=== PATIENT | female | born 1970 | race Caucasian/White ===

== ENCOUNTER → 2016-03-08 | Outpatient (CLI) | payer BC ==
--- NOTE | 2016-03-08 15:24 | US ---
EXAMINATION TYPE: US thyroid st tissue head/neck DATE OF EXAM: 03/08/2016 2:39 PM COMPARISON: NONE CLINICAL HISTORY: E04.9 Nontoxic goiter, unspecified. GLAND SIZE: Right Lobe: 4.6 x 1.5 x 1.6 cm Left Lobe: 4.1 x 1.2 x 1.5 cm Isthmus Thickness: 0.2 cm There is homogeneous glandular parenchyma without discrete nodule. IMPRESSION: Thyroid gland measurements as above. No discrete nodule.
== END | disposition home or self-care (01) ==
LOC: RADUSWWP 14:19
PROVIDERS: ATTEND Family Medicine
DX: E01.0 Iodine-deficiency related diffuse (endemic) goiter (principal); Z85.3 Personal history of malignant neoplasm of breast
CPT/HCPCS: 76536

== ENCOUNTER → 2017-11-04 | Outpatient (CLI) | payer BC ==
[~2017-11-04] MED LIST: LEUPROLIDE ACET 11.25MG SYRGKIT IM NR
[2017-11-04 08:51] VITALS: BP 154/101; PULSE 84; RESP 16; TEMP 97.9
== END ==
LOC: PROCWHC3 08:29
PROVIDERS: ATTEND Internal Medicine Hematology & Oncology
DX: C50.412 Malignant neoplasm of upper-outer quadrant of left female breast (principal)
CPT/HCPCS: 96372; J1950

== ENCOUNTER → 2017-12-22 | Outpatient (CLI) | payer BC ==
--- NOTE | 2017-12-22 14:41 | MM ---
Reason for exam: additional evaluation requested from prior study. Last mammogram was performed 1 year ago. History: Patient has history of breast cancer at age 41. Family history of breast cancer in maternal aunt. Benign US biopsy breast VAD RT of the right breast, January 07, 2014. Mastectomy of the left breast, July 16, 2011. Malignant left mammotome panel of the left breast, June 19, 2011. Implant in the left breast, 2011. Breast lift of the right breast, 2011. Reconstruction of the left breast, 2011. Taking tamoxifen for 1 year beginning at age 41. Physical Findings: Nurse did not find any significant physical abnormalities on exam. MG 3D Diag Mammo W/Cad RT CC and MLO view(s) were taken of the right breast. Prior study comparison: December 16, 2016, right breast MG 3d diag mammo w/cad RT. December 13, 2015, right breast MG diagnostic mammo RT w CAD. There are scattered fibroglandular densities. No significant new findings when compared with previous films. These results were verbally communicated with the patient and result sheet given to the patient on 12/22/17. ASSESSMENT: Benign, BI-RAD 2 RECOMMENDATION: Follow-up diagnostic mammogram of the right breast in 1 year.
== END | disposition home or self-care (01) ==
LOC: RADMAMWWP 06:53
PROVIDERS: ATTEND Internal Medicine Hematology & Oncology
DX: Z08 Encounter for follow-up examination after completed treatment for malignant neoplasm (principal); Z85.3 Personal history of malignant neoplasm of breast
CPT/HCPCS: 77061; 77065

== ENCOUNTER → 2018-02-05 | Outpatient (CLI) | payer BC ==
[~2018-02-05] MED LIST changes: -LEUPROLIDE ACET 11.25MG SYRGKIT IM NR; +LEUPROLIDE ACET 11.25MG SYRGKIT IM ONE
[2018-02-05 10:21] VITALS: BP 132/89; PULSE 86; RESP 16; TEMP 97.7
== END ==
LOC: PROCWHC3 09:49
PROVIDERS: ATTEND Internal Medicine Hematology & Oncology
DX: Z51.11 Encounter for antineoplastic chemotherapy (principal); C50.412 Malignant neoplasm of upper-outer quadrant of left female breast
CPT/HCPCS: 96402; J1950

== ENCOUNTER → 2018-05-18 | Outpatient (CLI) | payer BC ==
--- NOTE | 2018-05-18 09:56 | BD ---
EXAMINATION TYPE: Axial Bone Density DATE OF EXAM: 05/18/2018 COMPARISON: NONE CLINICAL HISTORY: C 50.412 Height: 5'6 Weight: 197 FRAX RISK QUESTIONS: Secondary Osteoporosis: 3. Menopause before 45: n RISK FACTORS HISTORY OF: Family History of Osteoporosis: y Post menopausal: Y MEDICATIONS: Additional Medications: breast cancer not tamoxifen Additional History: breast cancer 6 years ago, EXAM MEASUREMENTS: Bone mineral densitometry was performed using the [employer] System. Bone mineral density as measured about the Lumbar spine is: ----- L1-L4(G/cm2): 1.001 T Score Values are as follows: ----- L2: -1.4 ----- L3: -1.5 ----- L4:-2.4 ----- L1-L4: -1.5 Bone mineral density about the R hip (g/cm2): 1.139 Bone mineral density about the L hip (g/cm2): 1.055 T Score values are as follows: -----R Neck: 0.7 -----L Neck: 0.1 -----R Total: 0.8 -----L Total: 0.6 IMPRESSION: Osteopenia (T Score between -2.5 and -1). There is slightly increased risk of fracture and the patient may be considered for treatment. Re-Screen 2-5 years. NOTE: T-SCORE=SD OF THE YOUNG ADULT MEAN.
== END | disposition home or self-care (01) ==
LOC: RADBDWWP 07:19
PROVIDERS: ATTEND Internal Medicine Hematology & Oncology
DX: C50.412 Malignant neoplasm of upper-outer quadrant of left female breast (principal); M85.88 Other specified disorders of bone density and structure, other site; Z79.890 Hormone replacement therapy
CPT/HCPCS: 77080

== ENCOUNTER 2018-07-26 09:54 | Emergency (ER) | payer BC ==
[2018-07-26 10:11] VITALS: BP 134/91; PULSE 90; RESP 20; TEMP 98.1
[2018-07-26] MEDS ORDERED: SODIUM CHLORIDE 0.9% 1,000 ML IV ONE (10:24)
[2018-07-26] MEDS ORDERED: KETOROLAC 30 MG/ML 1 ML VIAL IVP STA (10:24)
--- NOTE | 2018-07-26 10:46 | ED ---
Female Urogenital HPI - General Chief complaint: Urogenital Stated complaint: FEMALE , BLEEDING Time Seen by Provider: 07/26/18 10:16 Source: patient, RN notes reviewed, old records reviewed Mode of arrival: ambulatory Limitations: no limitations - History of Present Illness Initial comments: Patient is a 48-year-old female, with history of breast cancer, currently on letrozole. She presents emergency today with concerns for vaginal bleeding. She reports that she started have some lower abdominal cramping and noticed severe heavy vaginal bleeding this morning around 4 AM. Patient states the bleeding has alee since that time. She states that she's not had a menstrual period in over a year. Patient states that her oncologist is Dr. Diamond. She does see Dr. álvarez. She reports that she's had no dysuria, or changes in stools. - Related Data Home Medications Medication Instructions Recorded Confirmed Multivitamins, Thera [Multivitamin 1 tab PO DAILY 01/24/17 02/05/18 (formulary)] Allergies Allergy/AdvReac Type Severity Reaction Status Date / Time No Known Allergies Allergy Verified 07/26/18 10:11 Review of Systems ROS Statement: Those systems with pertinent positive or pertinent negative responses have been documented in the HPI. ROS Other: All systems not noted in ROS Statement are negative. Past Medical History Past Medical History: Cancer Additional Past Medical History / Comment(s): BREAST History of Any Multi-Drug Resistant Organisms: None Reported Past Surgical History: Breast Surgery, Section, Tubal Ligation Additional Past Surgical History / Comment(s): LEFT MASTECTOMY Past Anesthesia/Blood Transfusion Reactions: No Reported Reaction Past Psychological History: No Psychological Hx Reported Smoking Status: Current every day smoker Past Alcohol Use History: None Reported Past Drug Use History: None Reported General Exam - General Exam Comments Initial Comments: 48-year-old female. Alert and oriented. No distress. Limitations: no limitations General appearance: alert, in no apparent distress Head exam: Present: atraumatic, normocephalic, normal inspection Eye exam: Present: normal appearance, PERRL, EOMI. Absent: scleral icterus, conjunctival injection, periorbital swelling ENT exam: Present: normal exam, mucous membranes moist Neck exam: Present: normal inspection Respiratory exam: Present: normal lung sounds bilaterally. Absent: respiratory distress, wheezes, rales, rhonchi, stridor Cardiovascular Exam: Present: regular rate, normal rhythm, normal heart sounds. Absent: systolic murmur, diastolic murmur, rubs, gallop, clicks GI/Abdominal exam: Present: soft External exam: Present: normal external exam Speculum exam: Present: vaginal bleeding. Absent: normal speculum exam By manual exam: Present: normal by manual exam. Absent: cervical motion tenderness, adnexal tenderness, adnexal mass Extremities exam: Present: normal inspection, full ROM, normal capillary refill. Absent: tenderness, pedal edema, joint swelling, calf tenderness Back exam: Present: normal inspection Neurological exam: Present: alert, oriented X3, CN II-XII intact Psychiatric exam: Present: normal affect, normal mood Skin exam: Present: warm Course Vital Signs 07/26/18 10:08 Temperature 98.1 F Pulse Rate 90 Respiratory 20 Rate Blood Pressure 134/91 O2 Sat by Pulse 96 Oximetry Medical Decision Making - Medical Decision Making This is a 48-year-old female presents emergency room today for 1 day of vaginal bleeding. Has a history of breast cancers, currently have much resolved for breast cancer treatment and hormonal induced menopause. Patient reports that she started to have the bleeding heavily this morning. No prior bleeding she's also on Depo-Provera. Patient reports she follows with Dr. Diamond and Dr. Nolen. This time patient's blood work was reviewed and unremarkable. Stable hemoglobin. Ultrasound shows evidence of a thickened endometrium likely related to hormone use cannot rule out endometrial cancer without biopsy. I discussed the findings with the Patient and advised that she follow-up with Dr. Nolen for a biopsy and further treatment. Patient states that his feel better after Toradol. She still complained of some cramping consistent with heavy menstrual cycle. We'll discharge the Patient does have a started pack for Ultram for cramping as well as Motrin and Tylenol and ice for pain. - Lab Data Result diagrams: 07/26/18 11:00 07/26/18 11:00 Lab Results 07/26/18 07/26/18 07/26/18 Range/Units 11:00 11:00 11:00 WBC 9.3 (3.8-10.6) k/uL RBC 4.82 (3.80-5.40) m/uL Hgb 13.7 (11.4-16.0) gm/dL Hct 43.4 (34.0-46.0) % MCV 90.1 (80.0-100.0) fL MCH 28.4 (25.0-35.0) pg MCHC 31.5 (31.0-37.0) g/dL RDW 13.1 (11.5-15.5) % Plt Count 367 (150-450) k/uL Neutrophils % 52 % Lymphocytes % 36 % Monocytes % 7 % Eosinophils % 2 % Basophils % 0 % Neutrophils # 4.9 (1.3-7.7) k/uL Lymphocytes # 3.3 (1.0-4.8) k/uL Monocytes # 0.6 (0-1.0) k/uL Eosinophils # 0.2 (0-0.7) k/uL Basophils # 0.0 (0-0.2) k/uL PT 9.9 (9.0-12.0) sec INR 0.9 (<1.2) APTT 24.8 (22.0-30.0) sec Sodium 139 (137-145) mmol/L Potassium 4.3 (3.5-5.1) mmol/L Chloride 108 H (98-107) mmol/L Carbon Dioxide 26 (22-30) mmol/L Anion Gap 5 mmol/L BUN 20 H (7-17) mg/dL Creatinine 0.69 (0.52-1.04) mg/dL Est GFR (CKD-EPI)AfAm >90 (>60 ml/min/1.73 sqM) Est GFR (CKD-EPI)NonAf >90 (>60 ml/min/1.73 sqM) Glucose 105 H (74-99) mg/dL Calcium 9.1 (8.4-10.2) mg/dL Total Bilirubin 0.6 (0.2-1.3) mg/dL AST 22 (14-36) U/L ALT 25 (9-52) U/L Alkaline Phosphatase 84 (38-126) U/L Total Protein 6.9 (6.3-8.2) g/dL Albumin 4.0 (3.5-5.0) g/dL Urine HCG, Qual (Not Detectd) 07/26/18 Range/Units 11:00 WBC (3.8-10.6) k/uL RBC (3.80-5.40) m/uL Hgb (11.4-16.0) gm/dL Hct (34.0-46.0) % MCV (80.0-100.0) fL MCH (25.0-35.0) pg MCHC (31.0-37.0) g/dL RDW (11.5-15.5) % Plt Count (150-450) k/uL Neutrophils % % Lymphocytes % % Monocytes % % Eosinophils % % Basophils % % Neutrophils # (1.3-7.7) k/uL Lymphocytes # (1.0-4.8) k/uL Monocytes # (0-1.0) k/uL Eosinophils # (0-0.7) k/uL Basophils # (0-0.2) k/uL PT (9.0-12.0) sec INR (<1.2) APTT (22.0-30.0) sec Sodium (137-145) mmol/L Potassium (3.5-5.1) mmol/L Chloride (98-107) mmol/L Carbon Dioxide (22-30) mmol/L Anion Gap mmol/L BUN (7-17) mg/dL Creatinine (0.52-1.04) mg/dL Est GFR (CKD-EPI)AfAm (>60 ml/min/1.73 sqM) Est GFR (CKD-EPI)NonAf (>60 ml/min/1.73 sqM) Glucose (74-99) mg/dL Calcium (8.4-10.2) mg/dL Total Bilirubin (0.2-1.3) mg/dL AST (14-36) U/L ALT (9-52) U/L Alkaline Phosphatase (38-126) U/L Total Protein (6.3-8.2) g/dL Albumin (3.5-5.0) g/dL Urine HCG, Qual Not Detected (Not Detectd) Disposition Clinical Impression: Abnormal uterine bleeding, Pelvic cramping Disposition: HOME SELF-CARE Condition: Good Instructions (If sedation given, give patient instructions): Dysfunctional Uterine Bleeding (ED) Additional Instructions: Patient has an close follow-up with your oncologist as well as SERVICE AND REPAIR SUPERVISOR. Return to emergency department if any alarming signs or symptoms occur. Is patient prescribed a controlled substance at d/c from ED?: No Referrals: Sharmila Sylvester MD [Primary Care Provider] - 1-2 days Marybel Nolen MD [STAFF PHYSICIAN] - 1-2 days Anushka Diamond MD [STAFF PHYSICIAN] - 1-2 days Time of Disposition: 13:13
[2018-07-26 11:20] LABS: Basophils % (A) 0 %; Eosinophils # (A) 0.2 k/uL (0-0.7); Eosinophils % (A) 2 %; HCT 43.4 % (34.0-46.0); HGB 13.7 gm/dL (11.4-16.0); Lymphocytes # (A) 3.3 k/uL (1.0-4.8); Lymphocytes % (A) 36 %; MCH 28.4 pg (25.0-35.0); MCHC 31.5 g/dL (31.0-37.0); MCV 90.1 fL (80.0-100.0); Mean Platelet Volume 6.8; Monocytes # (A) 0.6 k/uL (0-1.0); Monocytes % (A) 7 %; Neutrophils # (A) 4.9 k/uL (1.3-7.7); Neutrophils % (A) 52 %; Platelet Count 367 k/uL (150-450); RBC 4.82 m/uL (3.80-5.40); RDW 13.1 % (11.5-15.5); WBC 9.3 k/uL (3.8-10.6)
[2018-07-26 11:29] LABS: ALT 25 U/L (9-52); AST 22 U/L (14-36); African American GFR (CKD) >90 (>60 ml/min/1.73 sqM); Alkaline Phosphatase 84 U/L (38-126); Anion Gap 5 mmol/L; Blood Urea Nitrogen 20 mg/dL (7-17); Calcium 9.1 mg/dL (8.4-10.2); Carbon Dioxide 26 mmol/L (22-30); Chloride 108 mmol/L (98-107); Glucose 105 mg/dL (74-99); Potassium 4.3 mmol/L (3.5-5.1); Sodium 139 mmol/L (137-145); Total Bilirubin 0.6 mg/dL (0.2-1.3); Total Protein 6.9 g/dL (6.3-8.2)
[2018-07-26 11:47] LABS: Appearance,Urine Cloudy (Clear); Bacteria,Urine Few /hpf; Bilirubin,Urine Negative (Negative); Blood,Urine Moderate (Negative); Color,Urine Yellow; Glucose,Urine (UA) Negative (Negative); Ketones,Urine Negative (Negative); Leukocyte Esterase,Urine Negative (Negative); Mucus,Urine Rare /hpf; Nitrite,Urine Negative (Negative); Protein,Urine Trace (Negative); RBC,Urine 8 /hpf (0-5); Specific Gravity,Urine 1.016 (1.001-1.035); Squamous Epithelial Cell,Urine 2 /hpf (0-4); Urobilinogen,Urine <2.0 mg/dL (<2.0); WBC,Urine 6 /hpf (0-5)
[2018-07-26 11:48] LABS: INR 0.9 (<1.2); Partial Thromboplastin Time 24.8 sec (22.0-30.0); Prothrombin Time 9.9 sec (9.0-12.0)
--- NOTE | 2018-07-26 12:53 | US ---
EXAMINATION TYPE: US transvaginal DATE OF EXAM: 07/26/2018 COMPARISON: Previous study dated 01/24/2017. CLINICAL HISTORY: Pain. Patient in forced menopause on left hand. Patient has breast ca and is currently taking medication for that as well. TECHNIQUE: Transvaginal (TV). Date of LMP: 1 1/2 years prior. EXAM MEASUREMENTS: Uterus: 8.7 x 4.1 x 4.7 cm Endometrial Stripe: 1.6 cm Right Ovary: 1.9 x 1.3 x 1.4 cm Left Ovary: not visualized 1. Uterus: Anteverted wnl 2. Endometrium: thickened 3. Right Ovary: wnl 4. Left Ovary: Obscured by overlying bowel gas . Bilateral Adnexa: wnl 6. Posterior cul-de-sac: mild amount of ff IMPRESSION: 1. THICKENED ENDOMETRIUM. THIS MAY BE DUE TO HORMONAL THERAPY. ENDOMETRIAL CANCER WITH NEED TO BE RUL ED OUT. 2. SMALL AMOUNT OF FREE FLUID.
[2018-07-26] MEDS ORDERED: traMADol 50 MG STARTER PACK 3 TAB BTL PO STA (13:14)
== END 2018-07-26 13:29 | disposition home or self-care (01) ==
LOC: EC 09:54
DX: N93.9 Abnormal uterine and vaginal bleeding, unspecified (principal); R10.2 Pelvic and perineal pain; R93.89 Abnormal findings on diagnostic imaging of other specified body structures; F17.200 Nicotine dependence, unspecified, uncomplicated; Z85.3 Personal history of malignant neoplasm of breast; Z90.12 Acquired absence of left breast and nipple
CPT/HCPCS: 36415; 80053; 85025; 85610; 85730; 81001; 81025; 76830; 99284; 96374; 96361 ×2; J1885

== ENCOUNTER → 2018-07-28 | Outpatient (CLI) | payer BC ==
[2018-07-28 15:02] LABS: Basophils # (A) 0.1 k/uL (0-0.2); Basophils % (A) 0 %; Eosinophils # (A) 0.4 k/uL (0-0.7); Eosinophils % (A) 3 %; HCT 44.7 % (34.0-46.0); HGB 13.9 gm/dL (11.4-16.0); Lymphocytes # (A) 3.9 k/uL (1.0-4.8); Lymphocytes % (A) 35 %; MCHC 31.2 g/dL (31.0-37.0); MCV 92.9 fL (80.0-100.0); Mean Platelet Volume 6.7; Monocytes # (A) 0.8 k/uL (0-1.0); Monocytes % (A) 7 %; Neutrophils # (A) 5.8 k/uL (1.3-7.7); Neutrophils % (A) 52 %; Platelet Count 404 k/uL (150-450); RBC 4.81 m/uL (3.80-5.40); RDW 13.8 % (11.5-15.5); WBC 11.2 k/uL (3.8-10.6)
== END | disposition home or self-care (01) ==
LOC: LABPAT 14:12
PROVIDERS: ATTEND Obstetrics & Gynecology
DX: Z01.812 Encounter for preprocedural laboratory examination (principal); N93.9 Abnormal uterine and vaginal bleeding, unspecified
CPT/HCPCS: 36415; 85025

== ENCOUNTER → 2018-08-10 | Day surgery (SDC) | payer BC ==
[2018-08-05 13:17] VITALS: BMI 28.1
[~2018-08-10] MED LIST changes: +DEXAMETHASONE SOD PHOSPHATE 10 MG/ML 1 ML VIAL IV ONE; +HYDROmorphone 1 MG/ML 1 ML SYRINGE IVP ONE; +KETOROLAC 30 MG/ML 1 ML VIAL ONE; +LACTATED RINGERS 1,000 ML IV ONE; +LACTATED RINGERS 1,000 ML IV SCH; -LEUPROLIDE ACET 11.25MG SYRGKIT IM ONE; +LIDOCAINE 1% 20 ML VIAL (10MG/ML) FOR IV START INTRADERMA PRN; +LIDOCAINE 1% INJ 10MG/ML (20 ML MDV) ONE; +MIDAZOLAM 2 MG/2 ML VIAL IV PRN; +MIDAZOLAM 2 MG/2 ML VIAL ONE; +ONDANSETRON 4 MG/2 ML VIAL IVP ONE; +PROPOFOL 10 MG/ML 20 ML VIAL IV ONE; +Pre Op ABX Message 1 EACH MISC MISCELLANE ONE; +SILVER NITRATE APPLICATOR 1 EACH STICK..EA. TOPICAL ONE; +fentaNYL (PF) 50 MCG/ML 2 ML AMP IV PRN; +fentaNYL (PF) 50 MCG/ML 2 ML AMP ONE
[2018-08-10 08:09] VITALS: TEMP 97
--- NOTE | 2018-08-10 08:10 | P.OP ---
Date of Procedure: 08/10/18 Preoperative Diagnosis: Irregular uterine bleeding Postoperative Diagnosis: Endometrial polyp, grade 2 rectocele, grade 2 cystocele Procedure(s) Performed: Hysteroscopy, dilatation and curettage of the uterine cavity, polypectomy Anesthesia: JE Surgeon: Marybel Nolen Estimated Blood Loss (ml): 10 IV fluids (ml): 600 Urine output (ml): 20 Pathology: other (Endometrial curettings and polyp) Condition: stable Disposition: PACU Operative Findings: Grade 2 rectocele, grade 2 cystocele, 1 dominant endometrial polyp Description of Procedure: Patient is brought to the operating suite where general anesthetic is administered without difficulty. She's placed in the dorsal lithotomy position. The appropriate timeout was performed to assure proper patient and procedural identification. Urine hCG is negative. The cervix, vagina, perineal bodies are all prepped and draped in the usual sterile fashion. The bladder is drained for approximately 20 cc of clear yellow urine. The weighted speculum was placed into the vagina. The anterior lip of the cervix is grasped with a double-tooth tenaculum. Uterus sounds to a depth of 7 cm in the anteverted position. The cervix was gently and carefully dilated using Hanks dilators. The hysteroscope was placed and fluid is infused. The cavity is well distended and inspected. There is a smooth walled, rounded polyp noted in the lower uterine segment at approximately 3:00. The remaining view of the cavity is negative. The hysteroscope was removed. A small sharp curette is used and the cavity is gently and systematically curetted. The endometrial polyp is removed. This is sent to pathology for evaluation. The hysteroscope was then reintroduced, and the cavity is noted to be clear with no additional polyps, septa, fibroids or defects. The double-tooth tenaculum is also removed. A small esvyfj-fk-fhuze suture of 3-0 Vicryl is used on the perforation site for a small amount of bleeding with excellent results. All sponge needle and enhancement counts are correct. Patient is brought back to the recovery room in excellent condition with stable vital signs including a blood pressure of 115/72, pulse 73, 97% O2 saturation. She is given Toradol prior to leaving the operative suite. She will follow-up with me in the office in 2 weeks.
[2018-08-10 09:07] VITALS: RESP 18
[2018-08-10 09:55] VITALS: BP 113/72; PULSE 64
== END ==
LOC: OR 06:30
PROVIDERS: ATTEND Obstetrics & Gynecology
DX: N84.0 Polyp of corpus uteri (principal); N81.10 Cystocele, unspecified; N81.6 Rectocele; N92.6 Irregular menstruation, unspecified; Z85.3 Personal history of malignant neoplasm of breast; Z90.12 Acquired absence of left breast and nipple; Z98.51 Tubal ligation status; Z79.890 Hormone replacement therapy; Z83.3 Family history of diabetes mellitus; Z80.49 Family history of malignant neoplasm of other genital organs; Z87.891 Personal history of nicotine dependence; N93.9 Abnormal uterine and vaginal bleeding, unspecified
CPT/HCPCS: 81025; 88305; 58558; J2250; J1100; J2405; J2001; J3010; J1885; J1170; J2704

== ENCOUNTER 2018-12-08 14:23 | Emergency (ER) | payer OTHER ==
[2018-12-08 14:33] VITALS: RESP 18
[2018-12-08] MEDS ORDERED: KETOROLAC 30 MG/ML 1 ML VIAL IM STA (14:58)
--- NOTE | 2018-12-08 15:12 | ED ---
General Adult HPI - General Chief complaint: Extremity Injury, Upper Stated complaint: [facility]-Hand Injury Time Seen by Provider: 12/08/18 14:35 Source: patient Mode of arrival: ambulatory Limitations: no limitations - History of Present Illness Initial comments: Patient is a 48-year-old female presenting to the emergency department with chief complaint of right arm pain. Patient reports yesterday she was at work when she tripped and fell on the right side causing her right arm to be pinned between the ground and her body. Patient reports the pain is originating at the right breast and he is radiating distally and proximally along the arm. Patient reports limited range of motion in the right wrist with the inability to flex or extend it. Patient reports the pain is a 9 and throbbing. Patient denies any numbness or tingling. Patient went to [facility] who ordered x-rays. She had x-rays obtained today who were indicated of no fractures however the radiologist suggested a CT to perform which is why she was sent to the ED. Patient reports she still continues to have a lot of pain and no improvement in her symptoms. She really has an appointment scheduled tomorrow with network support specialist. - Related Data Home Medications Medication Instructions Recorded Confirmed Multivitamins, Thera [Multivitamin 1 tab PO DAILY 01/24/17 08/10/18 (formulary)] Letrozole 2.5 mg PO DAILY 08/10/18 08/10/18 Allergies Allergy/AdvReac Type Severity Reaction Status Date / Time No Known Allergies Allergy Verified 12/08/18 14:28 Review of Systems ROS Statement: Those systems with pertinent positive or pertinent negative responses have been documented in the HPI. ROS Other: All systems not noted in ROS Statement are negative. Past Medical History Past Medical History: Cancer Additional Past Medical History / Comment(s): Breast CA History of Any Multi-Drug Resistant Organisms: None Reported Past Surgical History: Breast Surgery, Section, Tubal Ligation Additional Past Surgical History / Comment(s): LEFT MASTECTOMY Past Anesthesia/Blood Transfusion Reactions: No Reported Reaction Past Psychological History: No Psychological Hx Reported Smoking Status: Current some day smoker Past Alcohol Use History: None Reported Past Drug Use History: None Reported General Exam Limitations: no limitations General appearance: alert, in no apparent distress Head exam: Present: atraumatic, normocephalic, normal inspection Eye exam: Present: normal appearance Pupils: Present: normal accommodation ENT exam: Present: normal exam, mucous membranes moist, normal external ear exam Neck exam: Present: normal inspection Respiratory exam: Present: normal lung sounds bilaterally Cardiovascular Exam: Present: regular rate, normal rhythm, normal heart sounds Extremities exam: Present: tenderness (Tenderness along the whole wrist. Anatomical snuffbox tenderness. Distal forearm tenderness), normal capillary refill, other (+2 ulnar and radial pulses bilaterally.). Absent: normal inspection (Very Mild swelling at the right wrist, no ecchymosis, discoloration or signs of trauma.), full ROM (Unable to flex or extend the wrist) Back exam: Present: normal inspection, full ROM Neurological exam: Present: alert, oriented X3 Psychiatric exam: Present: normal affect, normal mood Skin exam: Present: warm, intact, normal color Course Vital Signs 12/08/18 12/08/18 14:28 16:21 Temperature 97.7 F 98.0 F Pulse Rate 86 80 Respiratory 18 18 Rate Blood Pressure 159/71 142/73 O2 Sat by Pulse 98 98 Oximetry Procedures - Orthopedic Splinting/Casting Injury #1 Side: right Upper Extremity Injury Location: wrist Upper Extremity Immobilizer: thumb spica, Curtis wrap, synthetic pre-padded splint Medical Decision Making - Medical Decision Making Patient is a 48-year-old female presenting to the emergency department with a chief complaint of right arm pain. Patient was sent for x-ray imaging of the right upper extremity by [facility]. X-rays are negative for acute fracture or dislocations, however the patient continues to have severe pain. The radiologist suggested CT imaging. CT of the right wrist is indeterminate of the fracture versus possible vessel damage. A physical examination patient does have normal capillary refill with +2 radial pulses in that hand. On physical examination no signs of vascular damage. Patient already has an appointment scheduled with orthopedics. Patient declined narcotic analgesia. Patient was given Toradol. Patient advised to follow-up with orthopedics. Strict return parameters were thoroughly discussed with patient is understanding and agreeable. Thumb spica applied. Case discussed with physician. Disposition Clinical Impression: Sprain of wrist, right Disposition: HOME SELF-CARE Condition: Stable Instructions (If sedation given, give patient instructions): Wrist Injury (ED) Additional Instructions: Please follow up with orthopedics tomorrow. Please return to emergency department if symptoms worsen. Please take medication as directed. Is patient prescribed a controlled substance at d/c from ED?: No Referrals: Sharmila Sylvester MD [Primary Care Provider] - 1-2 days Jason Morton MD [STAFF PHYSICIAN] - 1-2 days Time of Disposition: 16:13
--- NOTE | 2018-12-08 15:39 | CT ---
EXAMINATION TYPE: CT wrist RT wo con DATE OF EXAM: 12/08/2018 COMPARISON: Radiograph same day HISTORY: 48-year-old female trauma, severe pain TECHNIQUE: Contiguous axial scanning of the right wrist without IV contrast. Coronal and sagittal rec onstructions performed. CT DLP: 107.1 mGycm Automated exposure control for dose reduction was used. FINDINGS: There is some generalized soft tissue swelling about the hand. Subtle cortical lucency along the lateral scaphoid marginating the radial carpal joint, refer to cheyanne nal image 21 and sagittal image 37. Tiny spur at the volar base of the first metacarpal. Otherwise, no acute fracture, subluxation, or dislocation seen. IMPRESSION: 1. SOME GENERALIZED SOFT TISSUE SWELLING ABOUT THE HAND. 2. SUBTLE CORTICAL LUCENCY ALONG THE LATERAL SCAPHOID MARGINATING THE RADIOCARPAL JOINT, CORONAL IMAG E 21 AND SAGITTAL IMAGE 37. EQUIVOCAL BETWEEN a NUTRIENT VESSEL FORAMEN VERSUS SUBTLE NONDISPLACED CO RTICAL FRACTURE. CORRELATE FOR ANY PINPOINT TENDERNESS HERE.
[2018-12-08] MEDS ORDERED: ACET/COD 300 MG/30 MG STARTER PACK 6 TAB BTL PO STA (16:11)
[2018-12-08 16:23] VITALS: BP 142/73; PULSE 80; TEMP 98
== END 2018-12-08 16:22 | disposition home or self-care (01) ==
LOC: EC 14:23
DX: S63.501A Unspecified sprain of right wrist, initial encounter (principal); F17.200 Nicotine dependence, unspecified, uncomplicated; Z79.899 Other long term (current) drug therapy; Z85.3 Personal history of malignant neoplasm of breast; Z90.12 Acquired absence of left breast and nipple; W01.0XXA Fall on same level from slipping, tripping and stumbling without subsequent striking against object, initial encounter; Y92.69 Other specified industrial and construction area as the place of occurrence of the external cause; Y99.0 Civilian activity done for income or pay
CPT/HCPCS: 73200; 99284; 29125; 96372; J1885

== ENCOUNTER → 2018-12-08 | Outpatient (CLI) | payer OTHER ==
--- NOTE | 2018-12-08 12:21 | XR ---
EXAMINATION TYPE: XR wrist complete RT, XR forearm RT, XR hand complete RT DATE OF EXAM: 12/08/2018 CLINICAL HISTORY: Right wrist pain after fall and right hand pain as well as right forearm pain. TECHNIQUE: Frontal, lateral and oblique images of the right wrist are obtained. Scaphoid view was ob tained. 2 views of the right forearm are obtained. 3 views of the right hand were obtained. COMPARISON: None FINDINGS: There is no acute fracture/dislocation evident in the right wrist. The joint spaces in th e right wrist appear within normal limits. The overlying soft tissue appears unremarkable. Slight ne gative ulnar variance is seen. No acute fracture or dislocation is seen in the right hand. Suboptimal visualization of the fourth an d fifth digit on the oblique view due to patient positioning. Minimal degenerative change of the firs t carpometacarpal joint and distal interphalangeal joints. No acute fracture or dislocation is seen of the right forearm. No radiopaque foreign body. No joint e ffusion of the elbow. No focal soft tissue swelling. IMPRESSION: There is no acute fracture or dislocation in the right wrist, forearm, nor hand. Given t he patient's severe pain correlate for point tenderness to determine need for CT and evaluation for o ccult fracture or repeat radiograph in 7-10 days.
== END | disposition home or self-care (01) ==
LOC: RADXRMAIN 10:52
PROVIDERS: ATTEND Emergency Medicine
DX: S50.01XA Contusion of right elbow, initial encounter (principal); S60.211A Contusion of right wrist, initial encounter; S60.221A Contusion of right hand, initial encounter

== ENCOUNTER → 2018-12-23 | Outpatient (CLI) | payer BC ==
--- NOTE | 2018-12-23 09:17 | MM ---
Reason for exam: additional evaluation requested from prior study. Last mammogram was performed 1 year ago. History: Patient has history of breast cancer at age 41. Family history of breast cancer in maternal aunt at age 50. Benign US biopsy breast VAD RT of the right breast, January 07, 2014. Mastectomy of the left breast, July 16, 2011. Malignant left mammotome panel of the left breast, June 19, 2011. Implant in the left breast, 2011. Breast lift of the right breast, 2011. Reconstruction of the left breast, 2011. Taking tamoxifen for 7 years beginning at age 41. Physical Findings: Nurse did not find any significant physical abnormalities on exam. MG 3D Diag Mammo W/Cad RT CC and MLO view(s) were taken of the right breast. Prior study comparison: December 22, 2017, right breast MG 3d diag mammo w/cad RT. December 16, 2016, right breast MG 3d diag mammo w/cad RT. There are scattered fibroglandular densities. Benign appearing calcifications in the right breast. No suspicious abnormality. These results were verbally communicated with the patient and result sheet given to the patient on 12/23/18. ASSESSMENT: Incomplete: need additional imaging evaluation, BI-RAD 0 RECOMMENDATION: Ultrasound of the right breast. (pain lower inner quadrant)
--- NOTE | 2018-12-23 09:18 | USB ---
Reason for exam: additional evaluation requested from abnormal screening. History: Patient has history of breast cancer at age 41. Family history of breast cancer in maternal aunt at age 50. Benign US biopsy breast VAD RT of the right breast, January 07, 2014. Mastectomy of the left breast, July 16, 2011. Malignant left mammotome panel of the left breast, June 19, 2011. Implant in the left breast, 2011. Breast lift of the right breast, 2011. Reconstruction of the left breast, 2011. Taking tamoxifen for 7 years beginning at age 41. US Breast Limited RT Right limited breast ultrasound including focal area of concern, retroareolar and axilla demonstrates no cystic or solid lesion seen. No suspicious sonographic finding. These results were verbally communicated with the patient and result sheet given to the patient on 12/23/18. ASSESSMENT: Negative, BI-RAD 1 RECOMMENDATION: Follow-up diagnostic mammogram of the right breast in 1 year.
== END | disposition home or self-care (01) ==
LOC: RADMAMWWP 07:30
PROVIDERS: ATTEND Internal Medicine Hematology & Oncology
DX: Z08 Encounter for follow-up examination after completed treatment for malignant neoplasm (principal); R92.8 Other abnormal and inconclusive findings on diagnostic imaging of breast; Z85.3 Personal history of malignant neoplasm of breast
CPT/HCPCS: 77061; 77065

== ENCOUNTER → 2019-03-25 | Outpatient (CLI) | payer BC ==
--- NOTE | 2019-03-25 12:51 | US ---
EXAMINATION TYPE: US thyroid st tissue head/neck DATE OF EXAM: 03/25/2019 COMPARISON: US 2017 CLINICAL HISTORY: R22.1 SWELLING,MASS,AND LUMP. GLAND SIZE: Right Lobe: 4.9 x 1.6 x 1.4 cm Overall Parenchyma: homogenous Left Lobe: 4.6 x 1.2 x 1.6 cm Overall Parenchyma: homogeneous Isthmus Thickness: 0.2 cm NODULES RIGHT: # of nodules measured on right: 0 LEFT: # of nodules measured on left: 0 ISTHMUS: # of nodules measured in the isthmus: 0 Bilateral neck scanned, no evidence of lymphadenopathy. Small benign 0.4 cm cyst left lobe, no other nodules noted. IMPRESSION: Benign 4 mm left thyroid cyst. Otherwise unremarkable thyroid ultrasound.
== END | disposition home or self-care (01) ==
LOC: RADUSWWP 12:07
PROVIDERS: ATTEND Family Medicine
DX: E04.1 Nontoxic single thyroid nodule (principal)
CPT/HCPCS: 76536

== ENCOUNTER → 2019-09-24 | Outpatient (CLI) | payer BC ==
--- NOTE | 2019-09-24 12:36 | US ---
EXAMINATION TYPE: US thyroid st tissue head/neck DATE OF EXAM: 09/24/2019 COMPARISON: 03/25/2019 CLINICAL HISTORY: 49-year-old female E04.1 Thyroid nodule. Follow-up, no thyroid meds TECHNIQUE: Multiple sonographic images of the thyroid gland are obtained. FINDINGS: GLAND SIZE: Right Lobe: 4.6 x 1.3 x 1.4 cm Overall Parenchyma: homogenous Left Lobe: 4.3 x 1.4 x 1.4 cm Overall Parenchyma: homogeneous Isthmus Thickness: 0.3 cm NODULES RIGHT: # of nodules measured on right: 0 LEFT: # of nodules measured on left: 0 - Previous seen cystic lesion not visualized on today exam ISTHMUS: # of nodules measured in the isthmus: 0 Bilateral neck scanned. Prominent right lymph node seen lateral to right thyroid lobe- 2.3 x 1.2 x 0 .7 cm. Two prominent lymph nodes seen superior to left thyroid lobe = 1.6 x 1.0 x 0.6 cm and 1.6 x 0 .9 x 0.9 cm. IMPRESSION: 1. Unremarkable ultrasound of the thyroid gland. 2. A few borderline sized cervical lymph nodes on either side, largest measuring 1.2 cm short axis. T hese remain prominent but nonenlarged by size criteria at this time. Probably reactive/post inflammat ory. Clinical follow-up recommended. If there is any enlargement, the neck should be rescanned.
== END | disposition home or self-care (01) ==
LOC: RADUSWWP 09:34
PROVIDERS: ATTEND Family Medicine
DX: R59.0 Localized enlarged lymph nodes (principal); E04.1 Nontoxic single thyroid nodule
CPT/HCPCS: 76536

== ENCOUNTER → 2019-11-15 | Outpatient (CLI) | payer BC ==
--- NOTE | 2019-11-15 09:14 | CT ---
EXAMINATION TYPE: CT soft tissue neck w con DATE OF EXAM: 11/15/2019 COMPARISON: None HISTORY: enlarged lymph nodes CT DLP: 663 mGycm CONTRAST: CT scan of the neck is performed with IV Contrast, patient injected with 100 mL of Isovue 300. Contrast enhanced CT of the neck was performed from the skull base through the lung apices. AIRWAY: The supraglottic, glottic, and subglottic portions of the airway appear patent and free of mass. SALIVARY GLANDS: 1.8 cm solid lesion noted within the left parotid gland inferior lobe. Small solid l esion noted within the right parotid gland measuring 5.5 mm with fatty hilum may reflect a lymph node . Several subcentimeter internal jugular lymph nodes are noted on the left as well as on the right. THYROID GLAND: No nodules or masses seen. LYMPH NODES: Several subcentimeter internal jugular lymph nodes are noted on the left as well as on t he right. LUNG APICES: No nodule or mass is seen. OTHER: Vascular structures are patent. No significant degenerative change of the cervical spine. N o abscess seen. IMPRESSION: 1. None nonspecific 1.8 cm intraparotid lesion left parotid gland. Additional smaller solid lesion ri ght parotid gland. 2. Subcentimeter lymph nodes within the internal jugular chains bilaterally.
== END | disposition home or self-care (01) ==
LOC: RADCTMAIN 08:18
PROVIDERS: ATTEND Otolaryngology
DX: K11.8 Other diseases of salivary glands (principal); R59.0 Localized enlarged lymph nodes
CPT/HCPCS: 70491; Q9967

== ENCOUNTER → 2019-12-27 | Outpatient (CLI) | payer BC ==
--- NOTE | 2019-12-28 13:37 | MM ---
Reason for exam: screening (asymptomatic). Last mammogram was performed 1 year ago. History: Patient has history of breast cancer at age 41. Family history of breast cancer in maternal aunt at age 50. Benign US biopsy breast VAD RT of the right breast, January 07, 2014. Mastectomy of the left breast, July 16, 2011. Malignant left mammotome panel of the left breast, June 19, 2011. Implant in the left breast, 2011. Breast lift of the right breast, 2011. Reconstruction of the left breast, 2011. Taking tamoxifen for 7 years beginning at age 41. Physical Findings: A clinical breast exam by your physician is recommended on an annual basis and results should be correlated with mammographic findings. MG 3D Scr Aide Unilateral W/Cad CC and MLO view(s) were taken of the right breast. Prior study comparison: December 23, 2018, right breast MG 3d diag mammo w/cad RT. December 22, 2017, right breast MG 3d diag mammo w/cad RT. December 16, 2016, right breast MG 3d diag mammo w/cad RT. There are scattered fibroglandular densities. Asymmetric breast tissue right upper outer quadrant 8-9cm from nipple. This finding is changed when compared with previous exams. ASSESSMENT: Incomplete: need additional imaging evaluation, BI-RAD 0 RECOMMENDATION: Special view mammogram of the right breast. If lesion persists on supplemental views, image directed ultrasound is recommended. [facility] will attempt to contact patient to return for supplemental views and ultrasound if indicated.
== END | disposition home or self-care (01) ==
LOC: RADMAMWWP 09:08
PROVIDERS: ATTEND Internal Medicine Hematology & Oncology
DX: Z12.31 Encounter for screening mammogram for malignant neoplasm of breast (principal); Z90.12 Acquired absence of left breast and nipple
CPT/HCPCS: 77067

== ENCOUNTER → 2020-01-13 | Outpatient (CLI) | payer BC ==
--- NOTE | 2020-01-14 11:28 | MM ---
Reason for exam: additional evaluation requested from abnormal screening. Last mammogram was performed 1 month ago. History: Patient has history of breast cancer at age 41. Family history of breast cancer in maternal aunt at age 50. Benign US biopsy breast VAD RT of the right breast, January 07, 2014. Mastectomy of the left breast, July 16, 2011. Malignant left mammotome panel of the left breast, June 19, 2011. Implant in the left breast, 2011. Breast lift of the right breast, 2011. Reconstruction of the left breast, 2011. Taking tamoxifen for 7 years beginning at age 41. Physical Findings: Nurse did not find any significant physical abnormalities on exam. MG 3D Work Up W/Cad RT Spot compression CC and spot compression MLO view(s) were taken of the right breast. Prior study comparison: December 27, 2019, bilateral MG 3d scr nikki unilateral w/cad. December 23, 2018, right breast MG 3d diag mammo w/cad RT. December 23, 2018, right breast US breast limited RT. December 22, 2017, right breast MG 3d diag mammo w/cad RT. December 16, 2016, right breast MG 3d diag mammo w/cad RT. December 13, 2015, right breast MG diagnostic mammo RT w CAD. Isodense central 9mm lobulated nodularity middle to posterior depth not seen on priors. Questioned oval upper outer quadrant focal asymmetry seems to localize to the skin and can be reassessed in 6 months. These results were verbally communicated with the patient and result sheet given to the patient on 01/13/20. ASSESSMENT: Incomplete: need additional imaging evaluation, BI-RAD 0 RECOMMENDATION: Ultrasound of the right breast. (retro and periareolar)
--- NOTE | 2020-01-14 11:47 | USB ---
Reason for exam: additional evaluation requested from abnormal screening. History: Patient has history of breast cancer at age 41. Family history of breast cancer in maternal aunt at age 50. Benign US biopsy breast VAD RT of the right breast, January 07, 2014. Mastectomy of the left breast, July 16, 2011. Malignant left mammotome panel of the left breast, June 19, 2011. Implant in the left breast, 2011. Breast lift of the right breast, 2011. Reconstruction of the left breast, 2011. Taking tamoxifen for 7 years beginning at age 41. US Breast Workup Limited RT Right limited breast ultrasound including focal area of concern, retroareolar and axilla demonstrates a 0.2 x 0.3 x 0.3cm oval, cystic lesion at 12 o'clock, a 0.2 x 0.3 x 0.2cm oval, cystic lesion at 12 o'clock, a 0.3 x 0.3 x 0.2cm oval, cystic cluster at 4 o'clock, duct ectasia at 7 o'clock, a 0.5 x 0.7 x 0.3cm oval, cystic lesion at 9 o'clock and a 2.3 x 1.8 x 1.1cm oval lymph node at the axilla, prominent but benign appearing. No clear correlate to the mammogram. Scanned subareolar and periareolar and axilla. These results were verbally communicated with the patient and result sheet given to the patient on 01/13/20. ASSESSMENT: Probably benign, BI-RAD 3 RECOMMENDATION: Follow-up diagnostic mammogram of the right breast in 6 months.
== END | disposition home or self-care (01) ==
LOC: RADMAMWWP 13:29
PROVIDERS: ATTEND Internal Medicine Hematology & Oncology
DX: R92.8 Other abnormal and inconclusive findings on diagnostic imaging of breast (principal)
CPT/HCPCS: 77061; 77065

== ENCOUNTER → 2020-03-09 | Outpatient (CLI) | payer BC ==
--- NOTE | 2020-03-10 08:57 | USB ---
Reason for exam: clinical finding. History: Patient has history of breast cancer at age 41. Family history of breast cancer in maternal aunt at age 50. Benign US biopsy breast VAD RT of the right breast, January 07, 2014. Mastectomy of the left breast, July 16, 2011. Malignant left mammotome panel of the left breast, June 19, 2011. Implant in the left breast, 2011. Breast lift of the right breast, 2011. Reconstruction of the left breast, 2011. Taking tamoxifen for 7 years beginning at age 41. Indicated problem(s): large axillary lymph nodes and pain in the right breast. Physical Findings: Nurse Summary: fullness in right axilla, painful (nurse dw). US Breast Axilla RT Right breast axilla ultrasound demonstrates a 0.9cm oval lymph node in area of pain, increased blood flow, 2.8 x 0.9 x 0.9cm versus 2.3 x 1.8 x 1.1cm previously. Lobulated cortex up to 4.5mm thick versus 2mm previously. Given hyperemia this may be reactive. Reassess in 6-8 weeks. These results were verbally communicated with the patient and result sheet given to the patient on 03/09/20. ASSESSMENT: Probably benign, BI-RAD 3 RECOMMENDATION: Ultrasound of the right breast in 2 months. (6-8 weeks, biopsy in increasing thickness)
== END | disposition home or self-care (01) ==
LOC: RADUSWWP 13:39
PROVIDERS: ATTEND Family Medicine
DX: R22.9 Localized swelling, mass and lump, unspecified (principal)

== ENCOUNTER → 2020-05-02 | Outpatient (CLI) | payer BC | END | disposition home or self-care (01) | LOC: LABWHC1 16:27 | PROVIDERS: ATTEND Family Medicine | DX: Z20.822 Contact with and (suspected) exposure to COVID-19 (principal) | CPT/HCPCS: U0003; C9803; U0005 ==

== ENCOUNTER → 2020-05-08 | Outpatient (CLI) | payer BC ==
--- NOTE | 2020-05-08 09:57 | USB ---
Reason for exam: clinical finding. History: Patient has history of breast cancer at age 41. Family history of breast cancer in maternal aunt at age 50. Benign US biopsy breast VAD RT of the right breast, January 07, 2014. Mastectomy of the left breast, July 16, 2011. Malignant left mammotome panel of the left breast, June 19, 2011. Implant in the left breast, 2011. Breast lift of the right breast, 2011. Reconstruction of the left breast, 2011. Taking tamoxifen for 7 years beginning at age 41. Indicated problem(s): lump or thickening in the right breast. Physical Findings: Nurse Summary: thickening at right under, tender to touch, redness noted under right breast, in fold, patient states redness is new (nurse leland). US Breast Axilla RT Technologist: Anuradha Mary Right breast axilla ultrasound redemonstrates a 2.6 x 0.9 x 0.9cm lymph node at the axilla, versus 2.8 x 0.9 x 0.9cm previously, focal cortical thickening 4.2mm unchanged for 2 months. 4 month follow up ultrasound recommended which would be the 6 month follow up from 01/13/20. These results were verbally communicated with the patient and result sheet given to the patient on 05/08/20. ASSESSMENT: Probably benign, BI-RAD 3 RECOMMENDATION: Ultrasound of the right breast in 4 months.
== END | disposition home or self-care (01) ==
LOC: RADUSWWP 08:21
PROVIDERS: ATTEND Family Medicine
DX: Z85.3 Personal history of malignant neoplasm of breast (principal)

== ENCOUNTER → 2020-05-23 | Outpatient (CLI) | payer BC ==
[2020-05-23 09:40] LABS: African American GFR (CKD) >90 (>60 ml/min/1.73 sqM); Anion Gap 7 mmol/L; Blood Urea Nitrogen 16 mg/dL (7-17); Carbon Dioxide 30 mmol/L (22-30); Chloride 102 mmol/L (98-107); Glucose 103 mg/dL (74-99); Non-African American GFR(CKD) >90 (>60 ml/min/1.73 sqM); Sodium 139 mmol/L (137-145)
[2020-05-23 09:50] LABS: Basophils % (A) 0 %; Eosinophils # (A) 0.2 k/uL (0-0.7); Eosinophils % (A) 2 %; HCT 43.8 % (34.0-46.0); Lymphocytes # (A) 3.7 k/uL (1.0-4.8); Lymphocytes % (A) 37 %; MCH 30.3 pg (25.0-35.0); MCHC 34.4 g/dL (31.0-37.0); MCV 88.2 fL (80.0-100.0); Mean Platelet Volume 7.2; Monocytes # (A) 0.7 k/uL (0-1.0); Monocytes % (A) 7 %; Neutrophils # (A) 5.3 k/uL (1.3-7.7); Neutrophils % (A) 53 %; Platelet Count 343 k/uL (150-450); RBC 4.96 m/uL (3.80-5.40); RDW 12.5 % (11.5-15.5); WBC 10.1 k/uL (3.8-10.6)
== END | disposition home or self-care (01) ==
LOC: LABPAT 08:53
PROVIDERS: ATTEND Obstetrics & Gynecology
DX: Z01.812 Encounter for preprocedural laboratory examination (principal); C50.919 Malignant neoplasm of unspecified site of unspecified female breast; Z20.822 Contact with and (suspected) exposure to COVID-19
CPT/HCPCS: 80051; 82565; 82947; 84520; 85025; 87086; 36415; U0003; C9803; U0005

== ENCOUNTER 2020-05-30 06:11 | Day surgery (SDC) | payer BC ==
[2020-05-24 11:40] VITALS: BMI 32.8
[~2020-05-30 06:11] MED LIST changes: -DEXAMETHASONE SOD PHOSPHATE 10 MG/ML 1 ML VIAL IV ONE; +DEXAMETHASONE SOD PHOSPHATE 4 MG/ML 1 ML VIAL IV ONE; -HYDROmorphone 1 MG/ML 1 ML SYRINGE IVP ONE; -KETOROLAC 30 MG/ML 1 ML VIAL ONE; -LACTATED RINGERS 1,000 ML IV ONE; +LIDOCAINE 1% (10MG/ML) FOR IV START INTRADERMA PRN; -LIDOCAINE 1% 20 ML VIAL (10MG/ML) FOR IV START INTRADERMA PRN; -LIDOCAINE 1% INJ 10MG/ML (20 ML MDV) ONE; -MIDAZOLAM 2 MG/2 ML VIAL IV PRN; -MIDAZOLAM 2 MG/2 ML VIAL ONE; -PROPOFOL 10 MG/ML 20 ML VIAL IV ONE; +SCOPOLAMINE 1.5MG/72HR PATCH TRANSDERM ONE; -SILVER NITRATE APPLICATOR 1 EACH STICK..EA. TOPICAL ONE; -fentaNYL (PF) 50 MCG/ML 2 ML AMP IV PRN; -fentaNYL (PF) 50 MCG/ML 2 ML AMP ONE
[2020-05-30] MEDS ORDERED: METOCLOPRAMIDE 5 MG/ML 2 ML VIAL IVP PRN (07:00)
[2020-05-30] MEDS ORDERED: LIDOCAINE 1% INJ 10MG/ML (20 ML MDV) ONE ×2 (07:27→07:33)
[2020-05-30] MEDS ORDERED: MIDAZOLAM 2 MG/2 ML VIAL IVP ONE (07:32)
[2020-05-30] MEDS ORDERED: fentaNYL (PF) 50 MCG/ML 2 ML AMP ONE (07:33)
[2020-05-30] MEDS ORDERED: LIDOCAINE 1%-EPI 1:100,000 20 ML VIAL ONE (07:33)
[2020-05-30] MEDS ORDERED: PROPOFOL 10 MG/ML 20 ML VIAL IV ONE (07:33)
[2020-05-30] MEDS ORDERED: SUCCINYLCHOLINE CHLORIDE 100 MG/5 ML SYR IV ONE (07:33)
[2020-05-30] MEDS ORDERED: KETOROLAC 15 MG/ML 1 ML VIAL ONE (07:33)
[2020-05-30] MEDS ORDERED: PHENYLEPHRINE-0.9% NACL SYG 1,000 MCG/10 ML SYRINGE ONE (07:33)
[2020-05-30] MEDS ORDERED: ROCURONIUM 10 MG/ML (5 ML VIAL) IV ONE (07:33)
[2020-05-30] MEDS ORDERED: NEOSTIGMINE 1 MG/ML 10 ML VIAL ONE (07:33)
[2020-05-30] MEDS ORDERED: GLYCOPYRROLATE 0.2 MG/ML 2 ML VIAL ONE (07:33)
[2020-05-30] MEDS ORDERED: ROPIVACAINE 5 MG/ML 30 ML VIAL ONE (07:33)
[2020-05-30] MEDS ORDERED: ONDANSETRON 4 MG/2 ML VIAL IVP PRN (08:50)
[2020-05-30] MEDS ORDERED: KETOROLAC 15 MG/ML 1 ML VIAL IVP PRN (08:50)
[2020-05-30] MEDS: HYDROmorphone 0.5 MG/0.5 ML SYRINGE IVP PRN ×2 (08:50→08:55)
--- NOTE | 2020-05-30 08:50 | P.OP ---
Date of Procedure: 05/30/20 Preoperative Diagnosis: Breast cancer estrogen receptor positive Postoperative Diagnosis: Same Procedure(s) Performed: Mini laparotomy, bilateral salpingo-oophorectomy Anesthesia: DEENAA Surgeon: Marybel Nolen Reliability Engineer #1: Isaura Benitez Estimated Blood Loss (ml): 20 IV fluids (ml): 600 Urine output (ml): 50 Pathology: other (Bilateral tubes and ovaries are separate cover) Condition: stable Disposition: PACU Description of Procedure: Patient is brought to the operating suite where a general anesthetic is administered without difficulty. The abdomen is prepped and draped in usual sterile fashion. Zaragoza catheter placed to direct drainage. Antibiotics are given. Appropriate timeout is performed to assure proper patient and procedural identification. A midline low transverse minilaparotomy incision is made through a previous section scar. This was taken down through the subcutaneous tissue which is approximately 6 cm deep. The fascia is isolated, scored, extended bilaterally with curved Rudolph scissors. Peritoneum is next identified and incised, there is no bowel or bladder involvement. Gentle manual exploration is performed in the right tube and ovary are grasped and brought into the surgical field and held with a [place] clamp. Caleb clamp was used across the tube and ovary and it is removed and sent to pathology. 0 Vicryl suture is used to tie the pedicle, flashed, and retied for excellent hemostasis. The remaining base is cauterized and the pedicle is placed back into the abdominal cavity. Manual exploration allows me to identify the left tube and ovary which is again brought into the operative field with a [place] clamp. Caleb clamp is used across the base of the tube and ovary, it is removed and sent to pathology. 0 Vicryl suture is used to secure the pedicle, it is tied, flashed, and retied. Electrocautery is used on the remaining stump. It is allowed to cool and placed back into the abdominal cavity. Hemostasis is excellent. Peritoneum is allowed to close by secondary intention. Fascia is closed in a running stitch of 0 Vicryl. Subcutaneous tissue is clean and dry, reapproximated with 3-0 Vicryl in a running fashion. 4-0 undyed Vicryl issues for final skin closure, Steri- Strips and Mastisol applied to the wound. All sponge needle and instrument counts are correct. Zaragoza is draining clear urine. Patient is brought back to the recovery room in very good condition with a blood pressure of 121/67, pulse 66, 99% O2 saturation.
[2020-05-30] MEDS ORDERED: LACTATED RINGERS 1,000 ML IV ONE (09:51)
[2020-05-30 11:25] VITALS: RESP 16
--- NOTE | 2020-05-30 12:56 | P.ANPRN ---
Procedure Note - Anesthesia - Nerve Block Performed Bilateral Erector Spinae Single Time Out Performed: Yes Date of Procedure: 05/30/20 Location of Patient: PreOp Indication: Acute Post-Operative Pain, Requested by Surgeon Sedation Type: Sedate with meaningful contact maintained Preparation: Sterile Prep Position: Prone Needle Types: Pajunk Needle Gauge: 21 Ultrasound used to visualize needle placement: Yes Ultrasound used to observe medication spread: Yes Blood Aspirated: No Pain Paresthesia on Injection Noted: No Resistance on Injection: Normal Image Stored and Saved: Yes Events: Uneventful and Well Tolerated (ropi .5% 15cc plus xylo 1% 15cc bilareally at t10)
[2020-05-30] MEDS: KETOROLAC 15 MG/ML 1 ML VIAL IVP SCH ×2 (14:21→16:14)
[2020-05-30] MEDS ORDERED: ACETAMINOPHEN TAB 500 MG TAB PO PRN (19:01)
[2020-05-30] MEDS ORDERED: ALBUTEROL NEBULIZED 2.5 MG/3 ML INHALATION PRN (20:04)
[2020-05-30] MEDS ORDERED: LORATADINE 10 MG TAB PO SCH (20:15)
[2020-05-30] MEDS ORDERED: PSEUDOEPHEDRINE 12HR 120 MG TABLET.ER PO SCH (21:00)
--- NOTE | 2020-05-31 08:04 | P.DS ---
Providers Date of admission: 05/30/20 Expected date of discharge: 05/31/20 Attending physician: Marybel Nolen Primary care physician: [facility] Course: This is a 50-year-old female who presented for bilateral salpingo-oophorectomy for history of positive estrogen receptor breast cancer. Oncologist recommended removal of the ovaries. All risks and benefits discussed in detail. Please see my history and physical for details. Yesterday she was admitted and underwent a mini laparotomy with removal of bilateral tubes and ovaries. She did well intraoperatively. Ovaries appeared normal to gross inspection. Uterus is unremarkable. Please see dictated operative note for details. This morning the patient feels well. She is voiding, ambulating passing flatus without difficulty. She did receive 1 albuterol treatment for scattered rhonchi, lungs are clear to auscultation this morning. Pulse ox on room air 93%, improved with deep breathing and cough. Patient has a bedside Tri-flow which she is using effectively. Incision is clean and dry, intact, active bowel sounds, no CVA tenderness. Extremities negative. Patient is judged to be in good condition for discharge home. She will follow-up with me in the office in 2 weeks. She is reminded no intercourse, tampons or douching. She will use [id number] Advil or Aleve, or Motrin as needed for pain. She will continue to use the Tri-flow every 1-2 hours at home and use her antihistamines as preop. She will call with any fevers shakes or chills, pain not alleviated by [id number] products, shortness of breath or any respiratory difficulties, or indeed with any concerns. Assessment: Doing well postoperative day #1 Patient Condition at Discharge: Good Plan - Discharge Summary New Discharge Prescriptions: No Action Multivitamins, Thera [Multivitamin (formulary)] 1 tab PO DAILY Letrozole 2.5 mg PO DAILY Discharge Medication List Multivitamins, Thera [Multivitamin (formulary)] 1 tab PO DAILY 01/24/17 [History] Letrozole 2.5 mg PO DAILY 08/10/18 [History] Follow up Appointment(s)/Referral(s): Marybel Nolen MD [STAFF PHYSICIAN] - 2 Weeks Discharge Disposition: HOME SELF-CARE
[2020-05-31 08:21] VITALS: BP 124/83; PULSE 88; TEMP 98.3
== END 2020-05-31 09:00 | disposition home or self-care (01) ==
LOC: OR 06:11 → 4FBP 09:27 → OR 05-31 09:00
PROVIDERS: ATTEND Obstetrics & Gynecology
DX: D27.1 Benign neoplasm of left ovary (principal); Z85.3 Personal history of malignant neoplasm of breast; Z17.0 Estrogen receptor positive status [ER+]; Z20.822 Contact with and (suspected) exposure to COVID-19; Z82.49 Family history of ischemic heart disease and other diseases of the circulatory system; Z83.3 Family history of diabetes mellitus; Z80.49 Family history of malignant neoplasm of other genital organs
CPT/HCPCS: 94640; 81025; 64999; 76942; 88305; 87635; 58661; J2250; J1100; J0690; J2405; J1885 ×2; J1170; 86850; 86900; 86901

== ENCOUNTER → 2020-07-26 | Outpatient (CLI) | payer BC ==
--- NOTE | 2020-07-26 14:31 | USB ---
EXAMINATION TYPE: US breast limited RT DATE OF EXAM: 07/26/2020 COMPARISON: Mammogram same date CLINICAL HISTORY: R92.8 Abnormal Mammo,Z85.3 Personal Hx Breast CA. Right breast asymmetry and right axillary fullness. FINDINGS: Targeted right breast ultrasound was performed at 9-12:00, the retroareolar region and in the axilla. Lymph nodes are noted in the axillary tail without definite cortical thickening. There are 2 adjacent cysts in the right breast measuring up to 0.9 and 0.6 cm which corresponds well in size, location and morphology to the central breast asymmetry on mammogram. IMPRESSION: No sonographic evidence for malignancy. Right diagnostic mammogram is recommended in 12 months. Patient is status post left mastectomy. BI-RADS 2, benign.
--- NOTE | 2020-07-27 14:38 | MM ---
Reason for exam: follow-up at short interval from prior study. Last mammogram was performed 6 months ago. History: Patient is postmenopausal and has history of breast cancer at age 41. Family history of breast cancer in maternal aunt at age 50. Benign US biopsy breast VAD RT of the right breast, January 07, 2014. Mastectomy of the left breast, July 16, 2011. Malignant left mammotome panel of the left breast, June 19, 2011. Implant in the left breast, 2011. Breast lift of the right breast, 2011. Reconstruction of the left breast, 2011. Took hormonal contraceptives for 2 years 6 months. Taking tamoxifen for 7 years beginning at age 41. Took antineoplastic for 8 years 6 months. Physical Findings: Nurse did not find any significant physical abnormalities on exam. MG 3D Diag Mammo W/Cad RT CC and MLO view(s) were taken of the right breast. Prior study comparison: January 13, 2020, right breast MG 3d work up w/cad RT. December 27, 2019, bilateral MG 3d scr nikki unilateral w/cad. There is an unchanged mass right central breast middle depth and ultrasound is recommended. Right axillary ultrasound is recommended for fullness and lymphadenopathy. Right lymph node with cortical thickening and biopsy clip not changed. These results were verbally communicated with the patient and result sheet given to the patient on 07/26/20. ASSESSMENT: Incomplete: need additional imaging evaluation, BI-RAD 0 RECOMMENDATION: Ultrasound of the right breast. MTDD
== END | disposition home or self-care (01) ==
LOC: RADMAMWWP 13:01
PROVIDERS: ATTEND Internal Medicine Hematology & Oncology
DX: N64.89 Other specified disorders of breast (principal); Z78.0 Asymptomatic menopausal state; Z80.3 Family history of malignant neoplasm of breast; Z85.3 Personal history of malignant neoplasm of breast; Z90.12 Acquired absence of left breast and nipple
CPT/HCPCS: 77061; 77065

== ENCOUNTER → 2021-08-15 | Outpatient (CLI) | payer BC ==
--- NOTE | 2021-08-15 07:21 | MM ---
Reason for Exam: Hx of breast cancer, mastectomy. Last mammogram was performed 1 year(s) and 1 month(s) ago. Patient History: Menarche at age 18. First Full-Term at age 20. Left ovary removed at age 50. Right ovary removed at age 50. Postmenopausal. Breast cancer, left, age 41. Hormonal Contraceptives for 2 years, 6 months. Currently using Tamoxifen, beginning at age 41 for 7 years. 07/16/2011, Mastectomy on the Left side. 01/07/2014, Benign Core Biopsy on the right side. 06/19/2011, Malignant Core Biopsy on the left side. 2011, Implant on the left side. 2011, Implant on the left side. Maternal aunt had breast cancer, age 50. Prior Study Comparison: 12/07/2012 Right Diagnostic Ultrasound, [facility]. 12/08/2013 Right Diagnostic Mammogram, [facility]. 12/08/2013 Right Diagnostic Ultrasound, [facility]. 07/08/2014 Right Diagnostic Ultrasound, [facility]. 12/09/2014 Right Diagnostic Mammogram, [facility]. 03/10/2015 Left Diagnostic Ultrasound, [facility]. 03/16/2015 Bilateral Diagnostic Breast MRI, [facility]. 12/13/2015 Right Diagnostic Mammogram, [facility]. 12/16/2016 Right Diagnostic Mammogram, [facility]. 12/22/2017 Right Diagnostic Mammogram, [facility]. 12/23/2018 Right Diagnostic Mammogram, [facility]. 12/23/2018 Right Diagnostic Ultrasound, [facility]. 12/27/2019 Bilateral Screening Mammogram, [facility]. 01/13/2020 Right Diagnostic Mammogram, [facility]. 01/13/2020 Right Diagnostic Ultrasound, [facility]. 03/09/2020 Right Diagnostic Ultrasound, [facility]. 05/08/2020 Right Diagnostic Ultrasound, [facility]. 07/26/2020 Right Diagnostic Mammogram, [facility]. Tissue Density: Right: There are scattered fibroglandular densities. Findings: Analyzed By CAD. Focal asymmetric density in the central middle depth right breast on MLO views is unchanged from prior studies. Prominent right axillary lymph nodes with biopsy clip redemonstrated and stable. No suspicious new mass or distortion in the right breast. Overall Assessment: Benign, BI-RAD 2 Management: Screening Mammogram of the right breast in 1 year. A clinical breast exam by your physician is recommended on an annual basis and results should be correlated with mammographic findings. This exam should not preclude additional follow-up of suspicious palpable abnormalities. Results were given to the patient verbally at the time of exam. Electronically signed and approved by: Lucas Telles M.D.
== END | disposition home or self-care (01) ==
LOC: RADMAMWWP 06:53
PROVIDERS: ATTEND Internal Medicine Hematology & Oncology
DX: R92.8 Other abnormal and inconclusive findings on diagnostic imaging of breast (principal); Z85.3 Personal history of malignant neoplasm of breast; Z78.0 Asymptomatic menopausal state; Z80.3 Family history of malignant neoplasm of breast
CPT/HCPCS: 77061; 77065

== ENCOUNTER 2022-01-28 03:59 | Observation (INO) | payer BC ==
--- NOTE | 2022-01-28 04:54 | XR ---
EXAMINATION TYPE: XR chest 2V DATE OF EXAM: 01/28/2022 COMPARISON: 03/10/2015 HISTORY: Cough TECHNIQUE: 2 view FINDINGS: Heart and mediastinum are normal. Lungs are clear. Diaphragm is normal. Bony thorax is inta ct. IMPRESSION: No active cardiopulmonary disease. No change.
[2022-01-28] MEDS ORDERED: IBUPROFEN 800 MG TAB PO STA (05:06)
[2022-01-28] MEDS ORDERED: SODIUM CHLORIDE 0.9% 1,000 ML IV STA ×2 (05:06)
[2022-01-28] MEDS ORDERED: ACETAMINOPHEN TAB 500 MG TAB PO STA (05:06)
[2022-01-28] MEDS ORDERED: IPRATROPIUM-ALBUTEROL 3 ML NEB INHALATION STA (05:06)
--- NOTE | 2022-01-28 05:07 | ED ---
SOB HPI - General Chief Complaint: Upper Respiratory Infection Stated Complaint: Fever, Congestion, Light headed Time Seen by Provider: 01/28/22 04:46 Source: patient, RN notes reviewed Mode of arrival: ambulatory Limitations: no limitations - History of Present Illness MD Complaint: shortness of breath, cough, chest pain, anxiety Radiation: back Severity: moderate Severity scale (1-10): 4 Known History Of: asthma Context: recent URI Associated Symptoms: chest pain, cough Treatments Prior to Arrival: none - Related Data Home Medications Medication Instructions Recorded Confirmed Multivitamins, Thera [Multivitamin 1 tab PO DAILY 01/24/17 05/24/20 (formulary)] RX: Letrozole 2.5 mg PO DAILY 08/10/18 05/30/20 Allergies Allergy/AdvReac Type Severity Reaction Status Date / Time hydrocodone [From Vicodin] AdvReac Itching Verified 01/28/22 04:08 Review of Systems ROS Statement: Those systems with pertinent positive or pertinent negative responses have been documented in the HPI. ROS Other: All systems not noted in ROS Statement are negative. Past Medical History Past Medical History: Cancer Additional Past Medical History / Comment(s): Breast CA History of Any Multi-Drug Resistant Organisms: None Reported Past Surgical History: Breast Surgery, Section, Tubal Ligation Additional Past Surgical History / Comment(s): LEFT MASTECTOMY Past Anesthesia/Blood Transfusion Reactions: No Reported Reaction Past Psychological History: No Psychological Hx Reported Smoking Status: Never smoker Past Alcohol Use History: None Reported Past Drug Use History: None Reported General Exam Limitations: no limitations General appearance: alert, in no apparent distress, anxious Head exam: Present: atraumatic, normocephalic, normal inspection Eye exam: Present: normal appearance, PERRL, EOMI. Absent: scleral icterus, conjunctival injection, periorbital swelling ENT exam: Present: normal exam, mucous membranes moist Neck exam: Present: normal inspection. Absent: tenderness, meningismus, lymphadenopathy Respiratory exam: Present: normal lung sounds bilaterally, wheezes. Absent: respiratory distress, rales, rhonchi, stridor Cardiovascular Exam: Present: normal rhythm, tachycardia, normal heart sounds. Absent: systolic murmur, diastolic murmur, rubs, gallop, clicks GI/Abdominal exam: Present: soft, normal bowel sounds. Absent: distended, tenderness, guarding, rebound, rigid Extremities exam: Present: normal inspection, full ROM, normal capillary refill. Absent: tenderness, pedal edema, joint swelling, calf tenderness Back exam: Present: normal inspection Neurological exam: Present: alert, oriented X3, CN II-XII intact Psychiatric exam: Present: normal affect, normal mood Skin exam: Present: warm, dry, intact, normal color. Absent: rash Course Vital Signs 01/28/22 01/28/22 01/28/22 04:05 06:00 06:09 Temperature 100.4 F H Pulse Rate 115 H 95 106 H Respiratory 20 Rate Blood Pressure 158/86 O2 Sat by Pulse 97 Oximetry Medical Decision Making - Lab Data Result diagrams: 01/28/22 05:30 01/28/22 05:30 Lab Results 01/28/22 01/28/22 01/28/22 Range/Units 04:25 05:30 05:30 WBC 8.3 (3.8-10.6) k/uL RBC 4.73 (3.80-5.40) m/uL Hgb 14.4 (11.4-16.0) gm/dL Hct 42.6 (34.0-46.0) % MCV 90.0 (80.0-100.0) fL MCH 30.5 (25.0-35.0) pg MCHC 33.9 (31.0-37.0) g/dL RDW 12.0 (11.5-15.5) % Plt Count 305 (150-450) k/uL MPV 7.6 Neutrophils % 67 % Lymphocytes % 19 % Monocytes % 10 % Eosinophils % 2 % Basophils % 1 % Neutrophils # 5.5 (1.3-7.7) k/uL Lymphocytes # 1.5 (1.0-4.8) k/uL Monocytes # 0.8 (0-1.0) k/uL Eosinophils # 0.1 (0-0.7) k/uL Basophils # 0.1 (0-0.2) k/uL PT 10.0 (9.0-12.0) sec INR 0.9 (<1.2) APTT 23.8 (22.0-30.0) sec Sodium (137-145) mmol/L Potassium (3.5-5.1) mmol/L Chloride (98-107) mmol/L Carbon Dioxide (22-30) mmol/L Anion Gap mmol/L BUN (7-17) mg/dL Creatinine (0.52-1.04) mg/dL Est GFR (CKD-EPI)AfAm (>60 ml/min/1.73 sqM) Est GFR (CKD-EPI)NonAf (>60 ml/min/1.73 sqM) Glucose (74-99) mg/dL Calcium (8.4-10.2) mg/dL Phosphorus (2.5-4.5) mg/dL Magnesium (1.6-2.3) mg/dL Total Bilirubin (0.2-1.3) mg/dL AST (14-36) U/L ALT (4-34) U/L Alkaline Phosphatase (38-126) U/L Troponin I (0.000-0.034) ng/mL NT-Pro-B Natriuret Pep pg/mL Total Protein (6.3-8.2) g/dL Albumin (3.5-5.0) g/dL Influenza Type A (PCR) Not Detected (Not Detectd) Influenza Type B (PCR) Not Detected (Not Detectd) RSV (PCR) Detected A (Not Detectd) SARS-CoV-2 (PCR) Not Detected (Not Detectd) 01/28/22 01/28/22 01/28/22 Range/Units 05:30 05:30 05:30 WBC (3.8-10.6) k/uL RBC (3.80-5.40) m/uL Hgb (11.4-16.0) gm/dL Hct (34.0-46.0) % MCV (80.0-100.0) fL MCH (25.0-35.0) pg MCHC (31.0-37.0) g/dL RDW (11.5-15.5) % Plt Count (150-450) k/uL MPV Neutrophils % % Lymphocytes % % Monocytes % % Eosinophils % % Basophils % % Neutrophils # (1.3-7.7) k/uL Lymphocytes # (1.0-4.8) k/uL Monocytes # (0-1.0) k/uL Eosinophils # (0-0.7) k/uL Basophils # (0-0.2) k/uL PT (9.0-12.0) sec INR (<1.2) APTT (22.0-30.0) sec Sodium 138 (137-145) mmol/L Potassium 4.4 (3.5-5.1) mmol/L Chloride 107 (98-107) mmol/L Carbon Dioxide 28 (22-30) mmol/L Anion Gap 3 mmol/L BUN 17 (7-17) mg/dL Creatinine 0.84 (0.52-1.04) mg/dL Est GFR (CKD-EPI)AfAm >90 (>60 ml/min/1.73 sqM) Est GFR (CKD-EPI)NonAf 82 (>60 ml/min/1.73 sqM) Glucose 94 (74-99) mg/dL Calcium 8.8 (8.4-10.2) mg/dL Phosphorus 2.8 (2.5-4.5) mg/dL Magnesium 2.1 (1.6-2.3) mg/dL Total Bilirubin 0.4 (0.2-1.3) mg/dL AST 25 (14-36) U/L ALT 27 (4-34) U/L Alkaline Phosphatase 82 (38-126) U/L Troponin I <0.012 (0.000-0.034) ng/mL NT-Pro-B Natriuret Pep 106 pg/mL Total Protein 7.1 (6.3-8.2) g/dL Albumin 4.1 (3.5-5.0) g/dL Influenza Type A (PCR) (Not Detectd) Influenza Type B (PCR) (Not Detectd) RSV (PCR) (Not Detectd) SARS-CoV-2 (PCR) (Not Detectd) Disposition Clinical Impression: Acute upper respiratory infection, Bronchitis, RSV (acute bronchiolitis due to respiratory syncytial virus), Fever Disposition: ADMITTED IP TO THIS HOSP Condition: Fair Is patient prescribed a controlled substance at d/c from ED?: No Referrals: Sharmila Sylvester MD [Primary Care Provider] - 1-2 days Time of Disposition: 06:55
[2022-01-28] MEDS ORDERED: AZITHROMYCIN 500 MG in SODIUM CHLORIDE 0.9% 250 ML IVPB STA (05:08)
[2022-01-28 05:42] LABS: Basophils # (A) 0.1 k/uL (0-0.2); Basophils % (A) 1 %; Eosinophils # (A) 0.1 k/uL (0-0.7); Eosinophils % (A) 2 %; HCT 42.6 % (34.0-46.0); HGB 14.4 gm/dL (11.4-16.0); Lymphocytes # (A) 1.5 k/uL (1.0-4.8); Lymphocytes % (A) 19 %; MCH 30.5 pg (25.0-35.0); MCHC 33.9 g/dL (31.0-37.0); Mean Platelet Volume 7.6; Monocytes # (A) 0.8 k/uL (0-1.0); Monocytes % (A) 10 %; Neutrophils # (A) 5.5 k/uL (1.3-7.7); Neutrophils % (A) 67 %; Platelet Count 305 k/uL (150-450); RBC 4.73 m/uL (3.80-5.40); WBC 8.3 k/uL (3.8-10.6)
[2022-01-28 05:53] LABS: ALT 27 U/L (4-34); AST 25 U/L (14-36); African American GFR (CKD) >90 (>60 ml/min/1.73 sqM); Albumin 4.1 g/dL (3.5-5.0); Alkaline Phosphatase 82 U/L (38-126); Anion Gap 3 mmol/L; Blood Urea Nitrogen 17 mg/dL (7-17); Calcium 8.8 mg/dL (8.4-10.2); Carbon Dioxide 28 mmol/L (22-30); Chloride 107 mmol/L (98-107); Glucose 94 mg/dL (74-99); Magnesium 2.1 mg/dL (1.6-2.3); Non-African American GFR(CKD) 82 (>60 ml/min/1.73 sqM); Phosphorus 2.8 mg/dL (2.5-4.5); Potassium 4.4 mmol/L (3.5-5.1); Sodium 138 mmol/L (137-145); Total Bilirubin 0.4 mg/dL (0.2-1.3); Total Protein 7.1 g/dL (6.3-8.2)
[2022-01-28 05:55] LABS: INR 0.9 (<1.2); Partial Thromboplastin Time 23.8 sec (22.0-30.0)
[2022-01-28] MEDS ORDERED: ONDANSETRON 4 MG/2 ML VIAL IVP PRN (06:50)
[2022-01-28] MEDS ORDERED: cefTRIAXone IN SWFI 1,000 MG/10 ML SYRINGE IVP STA (06:50)
[2022-01-28] MEDS ORDERED: NALOXONE 0.4 MG/ML 1 ML VIAL IV PRN (06:50)
[2022-01-28] MEDS: IPRATROPIUM-ALBUTEROL 3 ML NEB INHALATION SCH ×4 (07:24→19:51)
[2022-01-28] MEDS: SODIUM CHLORIDE 0.9% 1,000 ML IV SCH (07:48)
[2022-01-28] MEDS: ACETAMINOPHEN TAB 500 MG TAB PO PRN (12:23)
[2022-01-28] MEDS: methylPREDNISolone SOD SUCCI 40 MG/ML 1 ML VIAL IV SCH (17:34)
--- NOTE | 2022-01-28 20:17 | P.HPIM ---
History of Present Illness H&P Date: 01/28/22 Angelica Vega, is a 51 year old female who presented to [facility] emergency room with a chief complaint of cough, shortness of breath and wheezing She was evaluated in the emergency room vital examination on presentation revealed a temperature of 100.4 pulse 115 respiration 20 blood pressure 158/86 pulse ox 97% on room air Laboratory data revealed laboratory data revealed a white blood count of 8.3 hemoglobin 14.4 platelet count 305 RSV PCR was positive Testing in the emergency room revealed chest x-ray done in the emergency room revealed no active cardiopulmonary disease no change, EKG revealed sinus rhythm no acute ischemic changes Patient was admitted to medical floor for further evaluation and treatment, she was started on inhaled bronchodilators and on IV Solu-Medrol Past medical history patient denies any significant past medical history she denies any history of asthma or COPD she never smoked she denies any history of cardiac disease no history of angina or coronary artery disease or congestive heart Past Medical History Past Medical History: Cancer Additional Past Medical History / Comment(s): Breast CA History of Any Multi-Drug Resistant Organisms: None Reported Past Surgical History: Breast Surgery, Section, Tubal Ligation Additional Past Surgical History / Comment(s): LEFT MASTECTOMY Past Anesthesia/Blood Transfusion Reactions: No Reported Reaction Past Psychological History: No Psychological Hx Reported Smoking Status: Never smoker Past Alcohol Use History: None Reported Past Drug Use History: None Reported Medications and Allergies Home Medications Medication Instructions Recorded Confirmed Type Semaglutide [Ozempic] 0.5 mg SQ TU 01/28/22 01/28/22 History Allergies Allergy/AdvReac Type Severity Reaction Status Date / Time hydrocodone [From Vicodin] AdvReac Itching Verified 01/28/22 07:21 Physical Exam Vitals: Vital Signs Temp Pulse Pulse Resp BP BP Pulse Ox 01/28/22 11:48 90 01/28/22 11:37 88 01/28/22 08:46 98.4 F 103 H 16 109/66 96 01/28/22 07:34 90 01/28/22 07:24 89 01/28/22 07:00 90 16 117/73 100 01/28/22 06:09 106 H 01/28/22 06:00 95 01/28/22 04:05 100.4 F H 115 H 20 158/86 97 Intake and Output 12/01/28/22 01/28/22 22:59 06:59 14:59 Other: Weight 83.915 kg 83.915 kg In general patient is alert and oriented x 3 in no distress HEENT head normocephalic and atraumatic Neck is supple no JVD no goiter no lymphadenopathy no carotid bruit Chest examination reveals a scattered crackles bilaterally, with severe wheezing Cardiac exam reveals regular heart sounds S1 and S2 no gallops no murmurs Abdomen is soft nontender no organomegaly with normal bowel sounds Extremity exam reveals no edema no cyanosis or clubbing Neurological examination reveals no gross focal deficits Results CBC & Chem 7: 01/28/22 05:30 01/28/22 05:30 Labs: Abnormal Lab Results - Last 24 Hours (Table) 01/28/22 Range/Units 04:25 RSV (PCR) Detected A (Not Detectd) Thrombosis Risk Factor Assmnt - Choose All That Apply Each Factor Represents 1 point: Age 41-60 years Thrombosis Risk Factor Assessment Total Risk Factor Score: 1 Thrombosis Risk Factor Assessment Level: Low Risk Assessment and Plan Plan: Acute bronchitis with RSV, symptomatic, admitted to observation for symptom relief Continue IV Solu-Medrol and inhaled albuterol and Atrovent Will monitor for 24 hours if improving plan to discharge to home tomorrow
[2022-01-29] MEDS: IPRATROPIUM-ALBUTEROL 3 ML NEB INHALATION SCH ×4 (00:04→11:46)
[2022-01-29] MEDS: methylPREDNISolone SOD SUCCI 40 MG/ML 1 ML VIAL IV SCH ×2 (00:26→09:52)
[2022-01-29] MEDS: SODIUM CHLORIDE 0.9% 1,000 ML IV SCH (05:40)
[2022-01-29 08:34] VITALS: BP 131/76; RESP 16; TEMP 98
[2022-01-29 09:06] LABS: Basophils # (A) 0.02 X 10*3/uL (0.00-0.10); Basophils % (A) 0.3 %; Eosinophils # (A) 0 X 10*3/uL (0.04-0.35); Eosinophils % (A) 0 %; HCT 43.4 % (37.2-46.3); HGB 13.9 g/dL (12.0-15.0); Immature Grans, Automated 0.7 %; Lymphocytes # (A) 1.53 X 10*3/uL (0.90-5.00); Lymphocytes % (A) 26.2 %; MCH 29.8 pg (27.0-32.0); MCV 93.1 fL (80.0-97.0); Mean Platelet Volume 9.8 fL (9.5-12.2); Monocytes # (A) 0.11 X 10*3/uL (0.20-1.00); Monocytes % (A) 1.9 %; NRBC Per 100 WBC 0 /100 WBCS (0.0-0.0); Neutrophils # (A) 4.13 X 10*3/uL (1.80-7.70); Neutrophils % (A) 70.9 %; Platelet Count 309 X 10*3/uL (140-440); RBC 4.66 X 10*6/uL (4.10-5.20); RDW 12.2 % (11.5-14.5); WBC 5.83 X 10*3/uL (4.50-10.00)
[2022-01-29 09:11] LABS: African American GFR (CKD) 117.9 (60.0-200.0); Albumin 4.3 g/dL (3.8-4.9); Albumin/Globulin Ratio 1.54 (1.60-3.17); Anion Gap 13.3 mmol/L (10.00-18.00); Blood Urea Nitrogen 13.3 mg/dL (9.0-27.0); Calcium 9.4 mg/dL (8.7-10.3); Carbon Dioxide 17.7 mmol/L (20.0-27.5); Globulin 2.8 g/dL (1.6-3.3); Non-African American GFR(CKD) 101.7 (60.0-200.0); Potassium 4.3 mmol/L (3.5-5.5); Total Bilirubin 0.2 mg/dL (0.30-1.20); Total Protein 7.1 g/dL (6.2-8.2)
[2022-01-29] MEDS: ACETAMINOPHEN TAB 500 MG TAB PO PRN (09:51)
[2022-01-29 11:58] VITALS: PULSE 88
== END 2022-01-29 13:45 | disposition home or self-care (01) ==
LOC: EC 03:59 → 6NMEDSUR 06:54
PROVIDERS: ADMIT Internal Medicine; ATTEND Internal Medicine
DX: J06.9 Acute upper respiratory infection, unspecified (principal); J21.0 Acute bronchiolitis due to respiratory syncytial virus; J45.909 Unspecified asthma, uncomplicated; Z85.3 Personal history of malignant neoplasm of breast; Z90.12 Acquired absence of left breast and nipple; Z79.811 Long term (current) use of aromatase inhibitors; Z88.5 Allergy status to narcotic agent; Z20.822 Contact with and (suspected) exposure to COVID-19
CPT/HCPCS: 96361 ×2; 96375; 96376; 96365; 96366; 99285; 36415; 94640 ×4; 93005; 83880; 80053 ×2; 83735; 84100; 84484; 85025 ×2; 85610; 85730; 87636; 71046; G0378 ×2; J2920 ×2; J0456; J0696

== ENCOUNTER → 2022-08-16 | Outpatient (CLI) | payer BC ==
--- NOTE | 2022-08-19 08:29 | MM ---
Reason for Exam: Screening (asymptomatic). Last screening mammogram was performed 12 month(s) ago. Patient History: Menarche at age 18. First Full-Term at age 20. Left ovary removed at age 50. Right ovary removed at age 50. Postmenopausal. Breast cancer, left, age 41. Hormonal Contraceptives for 2 years, 6 months. Tamoxifen, starting at age 41 for 7 years. 07/16/2011, Mastectomy on the Left side. 01/07/2014, Benign Core Biopsy on the right side. 06/19/2011, Malignant Core Biopsy on the left side. 2011, Implant on the left side. 2011, Implant on the left side. Maternal aunt had breast cancer, age 50. Prior Study Comparison: 01/13/2020 Right Diagnostic Mammogram, [facility]. 07/26/2020 Right Diagnostic Mammogram, [facility]. 08/15/2021 Right MG 3D diag mammo w/cad RT, [facility]. Tissue Density: Right: The breast tissue is heterogeneously dense. This may lower the sensitivity of mammography. Findings: Analyzed By CAD. There is no suspicious group of microcalcifications or new suspicious mass in either breast. Overall Assessment: Benign, BI-RAD 2 Management: Screening Mammogram of the right breast in 1 year. . Patient should continue monthly self-breast exams. A clinical breast exam by your physician is recommended on an annual basis. This exam should not preclude additional follow-up of suspicious palpable abnormalities. Note on Susan scores and lifetime risk: 1. A Susan score greater than 3% is considered moderate risk. If this is the case, consider specialist referral to assess eligibility for a risk reducing agent. 2. If overall lifetime risk for the development of breast cancer is 20% or higher, the patient may qualify for future screening with alternating mammogram and breast MRI. Electronically signed and approved by: Donn Baker M.D. Radiologis
== END | disposition home or self-care (01) ==
LOC: RADMAMWWP 12:31
PROVIDERS: ATTEND Internal Medicine Hematology & Oncology
DX: Z12.31 Encounter for screening mammogram for malignant neoplasm of breast (principal); Z78.0 Asymptomatic menopausal state; Z80.3 Family history of malignant neoplasm of breast
CPT/HCPCS: 77067

== ENCOUNTER → 2022-08-29 | Outpatient (CLI) | payer OTHER ==
--- NOTE | 2022-08-29 11:47 | XR ---
EXAMINATION TYPE: XR hand complete LT DATE OF EXAM: 08/29/2022 11:40 AM INDICATION: Patient age:Female; 52 years old; Reason for study: S60.222A contusion L hand; [facility]. COMPARISON: None TECHNIQUE: Frontal, lateral and oblique views of the left hand were obtained. FINDINGS: Normal alignment of the visualized joints. No acute osseous pathology is identified. Mild soft tissue swelling of the dorsal hand. No radiopaque foreign body. IMPRESSION: 1. No acute osseous pathology. 2. Mild soft tissue swelling of the dorsal hand.
== END | disposition home or self-care (01) ==
LOC: RADXRMAIN 11:21
PROVIDERS: ATTEND Emergency Medicine
DX: S60.222A Contusion of left hand, initial encounter (principal); M79.89 Other specified soft tissue disorders; X58.XXXA Exposure to other specified factors, initial encounter

== ENCOUNTER 2022-09-15 08:25 | Emergency (ER) | payer BC, OTHER ==
[2022-09-15 08:30] VITALS: PULSE 86; RESP 18; TEMP 97.6
[2022-09-15] MEDS ORDERED: KETOROLAC 15 MG/ML 1 ML VIAL IM STA (08:53)
[2022-09-15] MEDS ORDERED: traMADol 50 MG TAB PO STA (08:53)
--- NOTE | 2022-09-15 08:56 | ED ---
Extremity Problem HPI - General Chief complaint: Extremity Problem,Nontraumatic Stated complaint: Lt knee pain Time Seen by Provider: 09/15/22 08:34 Source: patient, RN notes reviewed Mode of arrival: ambulatory Limitations: no limitations - History of Present Illness Initial comments: This is a 52-year-old female who presents to the emergency department for left knee pain. Patient states that this has been present and worsening over the last month. Pain is worse when she tries to ambulate or put pressure on it. States that she hears a crunching sensation when she tries to walk. Denies any injuries. She's been taking ibuprofen without improvement in symptoms. She has not noticed any redness to the leg but has started to develop some swelling. Denies any fevers, chills, sore throat, cough, dyspnea, chest pain, palpitations, abdominal pain, nausea, vomiting, diarrhea, back pain, or headaches. MD Complaint: extremity pain Onset/Timin -: month(s) Location: left, lower extremity - Related Data Home Medications Medication Instructions Recorded Confirmed Semaglutide [Ozempic] 0.5 mg SQ TU 01/28/22 01/28/22 Previous Rx's Medication Instructions Recorded Acetaminophen Tab [Tylenol] 500 mg PO Q4HR PRN tab 01/29/22 Albuterol Inhaler [Ventolin Hfa 2 puff INHALATION Q6H PRN 30 Days 01/29/22 Inhaler] #1 each predniSONE 10 mg PO DAILY 6 Days #9 tab 01/29/22 predniSONE 50 mg PO DAILY 5 Days #5 tab 09/15/22 Allergies Allergy/AdvReac Type Severity Reaction Status Date / Time hydrocodone [From Vicodin] AdvReac Itching Verified 09/15/22 08:28 Review of Systems ROS Statement: Those systems with pertinent positive or pertinent negative responses have been documented in the HPI. ROS Other: All systems not noted in ROS Statement are negative. Past Medical History Past Medical History: Cancer Additional Past Medical History / Comment(s): Breast CA History of Any Multi-Drug Resistant Organisms: None Reported Past Surgical History: Breast Surgery, Section, Hysterectomy, Tubal Ligation Additional Past Surgical History / Comment(s): LEFT MASTECTOMY, partial hysterectomy Past Anesthesia/Blood Transfusion Reactions: No Reported Reaction Past Psychological History: No Psychological Hx Reported Smoking Status: Never smoker Past Alcohol Use History: None Reported Past Drug Use History: None Reported General Exam Limitations: no limitations General appearance: alert, in no apparent distress Head exam: Present: atraumatic, normocephalic, normal inspection Respiratory exam: Present: normal lung sounds bilaterally. Absent: respiratory distress, wheezes, rales, rhonchi, stridor Cardiovascular Exam: Present: regular rate, normal rhythm, normal heart sounds. Absent: systolic murmur, diastolic murmur, rubs, gallop, clicks Extremities exam: Present: other (Tenderness to palpation over the left patella with overlying swelling. Range of motion limited by pain. No overlying deformities, erythema, or ecchymosis. No calf tenderness. 2+ DP and PT pulses. Capillary refill less than 1 second.) Neurological exam: Present: alert, oriented X3, CN II-XII intact Psychiatric exam: Present: normal affect, normal mood Skin exam: Present: warm, dry, intact, normal color. Absent: rash Course Vital Signs 09/15/22 09/15/22 08:29 10:14 Temperature 97.6 F 97.6 F Pulse Rate 86 86 Respiratory 18 18 Rate Blood Pressure 131/88 124/80 O2 Sat by Pulse 97 97 Oximetry Medical Decision Making - Medical Decision Making This is a 52-year-old female who presents to the emergency department for left knee pain. Was pt. sent in by a medical professional or institution? @ -No Did you speak to anyone other than the patient for history? @ -No Did you review nursing and triage notes? @ -Yes, and I agree, it is accurate with regards to the patient's symptoms. Were old charts reviewed? @ -No Differential Diagnosis? @ -Differential Knee Pain: Fracture, dislocation, sprain, contusion, OA, ACL/LCL/MCL/PCL injury, this is not meant to be an all-inclusive list. EKG interpreted by me (3pts min.)? @ -Not obtained X-rays interpreted by me (1pt min.)? @ -X-ray of the left knee obtained. My interpretation identifies no acute fractures or dislocations. CT interpreted by me (1pt min.)? @ -Not obtained U/S interpreted by me (1pt. min.)? @ -Not obtained What testing was considered but not performed? (CT, X-rays, U/S, labs)? Why? @ -None What meds were considered but not given? Why? @ -None Did you discuss the management of the patient with other professionals? @ -No Did you reconcile home meds? @ -No Was smoking cessation discussed for >3mins.? @ -No Was critical care preformed (if so, how long)? @ -No Were there social determinants of health that impacted care today? How? (Homelessness, low income, unemployed, alcoholism, drug addiction, transportation, low edu. Level, literacy, decrease access to med. care, halfway, rehab)? @ -No Was there de-escalation of care discussed even if they declined? (Discuss DNR or withdrawal of care, Hospice)? @ -No What co-morbidities impacted this encounter? (DM, HTN, Smoking, COPD, CAD, Cancer, CVA, Hep., AIDS, mental health diagnosis, sleep apnea, morbid obesity)? @ -None Was patient admitted / discharged? @ -Discharged. X-ray of the left knee obtained revealing a small joint effusion without any acute osseous abnormalities. She was given Toradol and tramadol for pain control, which was helpful. She declined a knee immobilizer. Prescription for prednisone provided with dosing instructions reviewed. She is instructed to take this with Tylenol for additional relief. Information for orthopedic follow-up provided. She is instructed to contact them for a follow- up appointment. Undiagnosed new problem with uncertain prognosis? @ -None Drug Therapy requiring intensive monitoring for toxicity (Heparin, Nitro, Insulin, Cardizem)? @ -None Were any procedures done? @ -None Diagnosis/symptom? @ -Left knee pain, joint effusion Acute, or Chronic, or Acute on Chronic? @ -Acute Uncomplicated (without systemic symptoms) or Complicated (systemic symptoms)? @ -Uncomplicated Side effects of treatment? @ -None Exacerbation, Progression, or Severe Exacerbation] @ -Not applicable Poses a threat to life or bodily function? @ -This is making it difficult to ambulate. Return precautions reviewed in depth, the patient is instructed to return to the emergency department with any new, worsening, or concerning symptoms. Patient verbalized understanding. This case was discussed in detail with the attending ED physician, Dr. Grossman. Presentation, findings, and treatment plan discussed in detail as well. - Radiology Data Radiology results: report reviewed, image reviewed Disposition Clinical Impression: Left knee pain, Joint effusion of knee Disposition: HOME SELF-CARE Instructions (If sedation given, give patient instructions): Knee Pain (ED) Additional Instructions: Return to the emergency department with any new, worsening, or concerning sy mptoms. Take the prednisone daily for 5 days. You can also take this with Tylenol for additional relief. Contact orthopedics as listed below for a follow-up appointment and reevaluation of ongoing symptoms. Follow up with your primary care provider in 1-2 days. Prescriptions: predniSONE 50 mg PO DAILY 5 Days #5 tab Is patient prescribed a controlled substance at d/c from ED?: No Referrals: Sharmila Sylvester MD [Primary Care Provider] - 1-2 days Mark Casey MD [Medical Doctor] - 1-2 days
--- NOTE | 2022-09-15 09:22 | XR ---
EXAMINATION TYPE: XR knee complete LT DATE OF EXAM: 09/15/2022 COMPARISON: None HISTORY: Pain TECHNIQUE: 3 view left knee FINDINGS: No acute fracture or dislocation is evident. Small joint effusion appears to be present. Brenda int spaces appear preserved Follow-up MRI can be performed to further evaluate soft tissues and the articular surfaces. IMPRESSION: 1. No acute osseous abnormality left knee. 2. Small joint effusion. 3. Consider MRI to further evaluate soft tissues.
[2022-09-15] MEDS ORDERED: traMADol 50 MG STARTER PACK 3 TAB BTL PO STA (10:00)
[2022-09-15 10:16] VITALS: BP 124/80
== END 2022-09-15 10:16 | disposition home or self-care (01) ==
LOC: EC 08:25
DX: M25.462 Effusion, left knee (principal); Z88.5 Allergy status to narcotic agent
CPT/HCPCS: 73562; 99283; 96372; J1885

== ENCOUNTER 2023-01-17 02:26 | Emergency (ER) | payer BC ==
--- NOTE | 2023-01-17 03:57 | ED ---
General Adult HPI - General Chief complaint: Upper Respiratory Infection Stated complaint: Sore Throat, Headache, Body Ache, Fever Time Seen by Provider: 01/17/23 02:38 Source: patient, RN notes reviewed Mode of arrival: ambulatory Limitations: no limitations - History of Present Illness Initial comments: 52-year-old female with no significant past medical history presents the emergency department with a chief complaint of sore throat. Patient had a worsening sore throat for the last couple of days. She denies any known recent sick contacts. She does endorse that she also had generalized fatigue and body aches. Denies any provoking breathing. She's been trying [id number] remedies with no symptomatic improvement. - Related Data Home Medications Medication Instructions Recorded Confirmed Semaglutide [Ozempic] 0.5 mg SQ TU 01/28/22 01/28/22 Previous Rx's Medication Instructions Recorded Acetaminophen Tab [Tylenol] 500 mg PO Q4HR PRN tab 01/29/22 Albuterol Inhaler [Ventolin Hfa 2 puff INHALATION Q6H PRN 30 Days 01/29/22 Inhaler] #1 each predniSONE 10 mg PO DAILY 6 Days #9 tab 01/29/22 predniSONE 50 mg PO DAILY 5 Days #5 tab 09/15/22 Amoxicillin 875 mg PO Q12HR #20 tablet 01/17/23 Allergies Allergy/AdvReac Type Severity Reaction Status Date / Time hydrocodone [From Vicodin] AdvReac Itching Verified 01/17/23 02:46 Review of Systems ROS Statement: Those systems with pertinent positive or pertinent negative responses have been documented in the HPI. ROS Other: All systems not noted in ROS Statement are negative. Past Medical History Past Medical History: Cancer Additional Past Medical History / Comment(s): Breast CA History of Any Multi-Drug Resistant Organisms: None Reported Past Surgical History: Breast Surgery, Section, Hysterectomy, Tubal Ligation Additional Past Surgical History / Comment(s): LEFT MASTECTOMY, partial hysterectomy Past Anesthesia/Blood Transfusion Reactions: No Reported Reaction Past Psychological History: No Psychological Hx Reported Smoking Status: Never smoker Past Alcohol Use History: None Reported Past Drug Use History: None Reported General Exam - General Exam Comments Initial Comments: General: Alert, in no acute distress Head: atraumatic normocephalic. Eyes PERRL, EOMI intact, mucous membranes moist Respiratory: Lungs clear to auscultation bilaterally Cardiovascular: Regular rate and rhythm Abdominal: Soft without guarding or rebound Extremities: Normal inspection with full range of motion and normal capillary refill Neuroogic: alert and oriented 3, CN II-XII intact, able to ambulate with steady gait Skin: warm dry and intact with normal color Limitations: no limitations Course Vital Signs 01/17/23 01/17/23 02:42 04:13 Temperature 99.3 F 99.6 F Pulse Rate 114 H 98 Respiratory 20 18 Rate Blood Pressure 123/88 132/89 O2 Sat by Pulse 97 96 Oximetry Medical Decision Making - Medical Decision Making Was pt. sent in by a medical professional or institution (, J[facility], FINANCIAL RISK MANAGER, urgent care, hospital, or residential...) When possible be specific @ -[No] Did you speak to anyone other than the patient for history (EMS, parent, family, police, friend...)? What history was obtained from this source @ -[No] Did you review nursing and triage notes (agree or disagree)? Why? @ -[I reviewed and agree with nursing and triage notes] Were old charts reviewed (outside hosp., previous admission, EMS record, old EKG, old radiological studies, urgent care reports/EKG's, residential records)? Report findings @ -[No old charts were reviewed] Differential Diagnosis (chest pain, altered mental status, abdominal pain women, abdominal pain men, vaginal bleeding, weakness, fever, dyspnea, syncope, headache, dizziness, GI bleed, back pain, seizure, CVA, palpatations, mental health, musculoskeletal)? @ -[not applicable] EKG interpreted by me (3pts min.). @ -[As above] X-rays interpreted by me (1pt min.). @ -[None done] CT interpreted by me (1pt min.). @ -[None done] U/S interpreted by me (1pt. min.). @ -[None done] What testing was considered but not performed or refused? (CT, X-rays, U/S, labs)? Why? @ -[None] What meds were considered but not given or refused? Why? @ -[None] Did you discuss the management of the patient with other professionals (professionals i.e. , JAV[employer], FINANCIAL RISK MANAGER, lab, RT, psych nurse, secondary social studies teacher, road engineer, teacher, activities officer, family manager)? Give summary @ -[No] Was smoking cessation discussed for >3mins.? @ -[No] Was critical care preformed (if so, how long)? @ -[No] Were there social determinants of health that impacted care today? How? (Homelessness, low income, unemployed, alcoholism, drug addiction, transportation, low edu. Level, literacy, decrease access to med. care, senior living, rehab)? @ -[No] Was there de-escalation of care discussed even if they declined (Discuss DNR or withdrawal of care, Hospice)? DNR status @ -[No] What co-morbidities impacted this encounter? (DM, HTN, Smoking, COPD, CAD, Cancer, CVA, ARF, Chemo, Hep., AIDS, mental health diagnosis, sleep apnea, morbid obesity)? @ -[None] Was patient admitted / discharged? Hospital course, mention meds given and route, prescriptions, significant lab abnormalities, going to OR and other pertinent info. @ Patient is a 52-year-old female who presents the emergency department with sore throat. Physical exam without hepatosplenomegaly or exudate. Patient strep positive. Patient provided amoxicillin in the ED. Patient is a prescription for amoxicillin. Return precautions discussed at length. Discharged in stable condition. Case discussed with Dr. Flaquita PERAZA who agrees with plan of care Undiagnosed new problem with uncertain prognosis? @ -[No] Drug Therapy requiring intensive monitoring for toxicity (Heparin, Nitro, Insulin, Cardizem)? @ -[No] Were any procedures done? @ -[No] Diagnosis/symptom? @ -Strep throat Acute, or Chronic, or Acute on Chronic? @ -Acute Uncomplicated (without systemic symptoms) or Complicated (systemic symptoms)? @ -Uncomplicated Side effects of treatment? @ -[No] Exacerbation, Progression, or Severe Exacerbation? @ -[No] Poses a threat to life or bodily function? How? (Chest pain, USA, SC, pneumonia, PE, COPD, DKA, ARF, appy, cholecystitis, CVA, Diverticulitis, Homicidal, Suicidal, threat to staff... and all critical care pts) @ -Low likleihood - Lab Data Lab Results 01/17/23 01/17/23 Range/Units 02:47 02:47 Influenza Type A (PCR) Not Detected (Not Detectd) Influenza Type B (PCR) Not Detected (Not Detectd) RSV (PCR) Not Detected (Not Detectd) SARS-CoV-2 (PCR) Not Detected (Not Detectd) Group A Strep (PCR) DETECTED A (Not Detectd) Disposition Clinical Impression: Strep throat Disposition: HOME SELF-CARE Condition: Stable Instructions (If sedation given, give patient instructions): Strep Throat (ED) Additional Instructions: Please take ABX as prescribed Please return to the nearest emergency department if worsening symptoms develop Prescriptions: Amoxicillin 875 mg PO Q12HR #20 tablet Is patient prescribed a controlled substance at d/c from ED?: No Referrals: Sharmila Sylvester MD [Primary Care Provider] - 1-2 days Time of Disposition: 03:57
[2023-01-17] MEDS ORDERED: AMOXICILLIN 875 MG TAB PO ONE (04:00)
[2023-01-17 04:30] VITALS: BP 132/89; PULSE 98; RESP 18; TEMP 99.6
== END 2023-01-17 04:14 | disposition home or self-care (01) ==
LOC: EC 02:26
DX: J02.0 Streptococcal pharyngitis (principal); B95.0 Streptococcus, group A, as the cause of diseases classified elsewhere; Z88.6 Allergy status to analgesic agent; Z20.822 Contact with and (suspected) exposure to COVID-19
CPT/HCPCS: 87636; 87651; 99284

== ENCOUNTER → 2023-08-18 | Outpatient (CLI) | payer BC ==
--- NOTE | 2023-08-20 13:18 | MM ---
Reason for Exam: Screening (asymptomatic). Last screening mammogram was performed 12 month(s) ago. Patient History: Menarche at age 18. First Full-Term at age 20. Left ovary removed at age 50. Right ovary removed at age 50. Postmenopausal. Breast cancer, left, age 41. Hormonal Contraceptives for 2 years, 6 months. Tamoxifen, starting at age 41 for 7 years. 07/16/2011, Mastectomy on the Left side. 01/07/2014, Benign Core Biopsy on the right side. 06/19/2011, Malignant Core Biopsy on the left side. 2011, Implant on the left side. 2011, Implant on the left side. Maternal aunt had breast cancer, age 50. Prior Study Comparison: 07/26/2020 Right Diagnostic Mammogram, [facility]. 08/15/2021 Right MG 3D diag mammo w/cad RT, [facility]. 08/16/2022 Right Screening 3D/Tomosynthesis, [facility]. Tissue Density: Right: There are scattered areas of fibroglandular density. Findings: Analyzed By CAD. Right breast: There is no suspicious group of microcalcifications or new suspicious mass. Left breast: There is no suspicious group of microcalcifications or new suspicious mass. Overall Assessment: Negative, BI-RAD 1 Management: Screening Mammogram of both breasts in [address] [facility] will attempt to contact patient to return for supplemental views and ultrasound if indicated. Patient should continue monthly self-breast exams. A clinical breast exam by your physician is recommended on an annual basis. This exam should not preclude additional follow-up of suspicious palpable abnormalities. Note on Susan scores and lifetime risk: 1. A Susan score greater than 3% is considered moderate risk. If this is the case, consider specialist referral to assess eligibility for a risk reducing agent. 2. If overall lifetime risk for the development of breast cancer is 20% or higher, the patient may qualify for future screening with alternating mammogram and breast MRI. Electronically signed and approved by: Mukesh Rodriguez DO
== END | disposition home or self-care (01) ==
LOC: RADMAMWWP 10:50
PROVIDERS: ATTEND Internal Medicine Hematology & Oncology
DX: Z12.31 Encounter for screening mammogram for malignant neoplasm of breast (principal); Z78.0 Asymptomatic menopausal state; Z80.3 Family history of malignant neoplasm of breast
CPT/HCPCS: 77067

== ENCOUNTER → 2023-09-18 | Outpatient (CLI) | payer BC | END | disposition home or self-care (01) | LOC: LABPRL 08:15 | PROVIDERS: ATTEND Family Medicine | DX: E11.9 Type 2 diabetes mellitus without complications (principal) | CPT/HCPCS: 80053; 80061; 83036; 84443; 85025 ==

== ENCOUNTER 2024-02-25 10:58 | Emergency (ER) | payer BC ==
[2024-02-25 11:06] VITALS: RESP 18
[2024-02-25] MEDS: METOCLOPRAMIDE 5 MG/ML 2 ML VIAL IVP STA (11:51)
[2024-02-25] MEDS: SODIUM CHLORIDE 0.9% 1,000 ML IV ONE (11:55)
--- NOTE | 2024-02-25 12:05 | ED ---
General Adult HPI - General Chief complaint: Headache Stated complaint: nausea Time Seen by Provider: 02/25/24 11:10 Source: patient, RN notes reviewed Mode of arrival: ambulatory Limitations: no limitations - History of Present Illness Initial comments: Patient is a 53-year-old female present to the emergency department with not feeling well since yesterday. Patient has had 2 episodes of diarrhea. Patient has nausea and decreased oral intake. No vomiting. Patient has been very fatigued and sleepy. Patient also has a headache. No upper respiratory symptoms. Patient has had chills. - Related Data Home Medications Medication Instructions Recorded Confirmed Semaglutide [Ozempic] 0.5 mg SQ TU 01/28/22 01/28/22 Previous Rx's Medication Instructions Recorded Acetaminophen Tab [Tylenol] 500 mg PO Q4HR PRN tab 01/29/22 Albuterol Inhaler [Ventolin Hfa 2 puff INHALATION Q6H PRN 30 Days 01/29/22 Inhaler] #1 each predniSONE 10 mg PO DAILY 6 Days #9 tab 01/29/22 predniSONE 50 mg PO DAILY 5 Days #5 tab 09/15/22 Amoxicillin 875 mg PO Q12HR #20 tablet 01/17/23 Ondansetron Odt [Zofran Odt] 4 mg PO Q8HR PRN #10 tab 02/25/24 Allergies Allergy/AdvReac Type Severity Reaction Status Date / Time hydrocodone [From Vicodin] AdvReac Itching Verified 02/25/24 11:06 Review of Systems ROS Statement: Those systems with pertinent positive or pertinent negative responses have been documented in the HPI. ROS Other: All systems not noted in ROS Statement are negative. Constitutional: Reports: chills Eyes: Denies: eye pain ENT: Denies: ear pain, congestion Respiratory: Denies: cough, dyspnea Cardiovascular: Denies: chest pain Endocrine: Denies: fatigue Gastrointestinal: Reports: nausea, diarrhea. Denies: vomiting Neurological: Reports: headache. Denies: weakness, confusion Past Medical History Past Medical History: Cancer Additional Past Medical History / Comment(s): Breast CA History of Any Multi-Drug Resistant Organisms: None Reported Past Surgical History: Breast Surgery, Section, Hysterectomy, Tubal Ligation Additional Past Surgical History / Comment(s): LEFT MASTECTOMY, partial hysterectomy Past Anesthesia/Blood Transfusion Reactions: No Reported Reaction Past Psychological History: No Psychological Hx Reported Smoking Status: Never smoker Past Alcohol Use History: None Reported Past Drug Use History: None Reported General Exam Limitations: no limitations General appearance: alert, in no apparent distress Head exam: Present: normocephalic Eye exam: Present: normal appearance, PERRL, EOMI ENT exam: Present: normal oropharynx Neck exam: Present: normal inspection. Absent: meningismus Respiratory exam: Present: normal lung sounds bilaterally Cardiovascular Exam: Present: regular rate, normal rhythm GI/Abdominal exam: Present: soft. Absent: tenderness Extremities exam: Present: normal inspection Neurological exam: Present: alert, oriented X3, CN II-XII intact. Absent: motor sensory deficit Expanded Neurological exam: Present: protecting the airway Speech: Present: fluid speech Cranial nerves: EOM's Intact: Normal Motor strength exam: RUE: 5, LUE: 5, RLE: 5, LLE: 5 Eye Response: (4) open spontaneously Motor Response: (6) obeys commands Verbal Response: (5) oriented Psychiatric exam: Present: normal affect, normal mood Skin exam: Present: normal color Course Vital Signs 02/25/24 11:02 Temperature 97.9 F Pulse Rate 72 Respiratory 18 Rate Blood Pressure 120/79 O2 Sat by Pulse 98 Oximetry Medical Decision Making - Medical Decision Making Was pt. sent in by a medical professional or institution (JAVED García, MOTORSPORTS TECHNICIAN, urgent care, hospital, or fci...) When possible be specific @ -No Did you speak to anyone other than the patient for history (EMS, parent, family, police, friend...)? What history was obtained from this source @ -No Did you review nursing and triage notes (agree or disagree)? Why? @ -I reviewed and agree with nursing and triage notes Were old charts reviewed (outside hosp., previous admission, EMS record, old EKG, old radiological studies, urgent care reports/EKG's, fci records)? Report findings @ -No old charts were reviewed Differential Diagnosis (chest pain, altered mental status, abdominal pain women, abdominal pain men, vaginal bleeding, weakness, fever, dyspnea, syncope, headache, dizziness, GI bleed, back pain, seizure, CVA, palpatations, mental health, musculoskeletal)? @ -Differential Abdominal Pain Women: Appendicitis, Cholecystitis, diverticulosis, ischemic bowel, pancreatitis, hepatitis, UTI, gastroenteritis, AAA, incarcerated hernia, bowel obstruction, constipation, inflammatory bowel, hepatitis, peptic ulcer disease, splenic infarction, perforated viscus, vulvitis, ovarian torsion, PID, kidney stone, placenta abruption, this is not meant to be an all-inclusive list EKG interpreted by me (3pts min.). @ -As above X-rays interpreted by me (1pt min.). @ -None done CT interpreted by me (1pt min.). @ -None done U/S interpreted by me (1pt. min.). @ -None done What testing was considered but not performed or refused? (CT, X-rays, U/S, labs)? Why? @ -None What meds were considered but not given or refused? Why? @ -None Did you discuss the management of the patient with other professionals (professionals i.e. , PA, MOTORSPORTS TECHNICIAN, lab, RT, psych nurse, hospital social worker, sanitation worker, teacher, deck officer, casework specialist)? Give summary @ -No Was smoking cessation discussed for >3mins.? @ -No Was critical care preformed (if so, how long)? @ -No Were there social determinants of health that impacted care today? How? (Homelessness, low income, unemployed, alcoholism, drug addiction, transportation, low edu. Level, literacy, decrease access to med. care, fpc, rehab)? @ -No Was there de-escalation of care discussed even if they declined (Discuss DNR or withdrawal of care, Hospice)? DNR status @ -No What co-morbidities impacted this encounter? (DM, HTN, Smoking, COPD, CAD, Cancer, CVA, ARF, Chemo, Hep., AIDS, mental health diagnosis, sleep apnea, morbid obesity)? @ -None Was patient admitted / discharged? Hospital course, mention meds given and route, prescriptions, significant lab abnormalities, going to OR and other pertinent info. @ -Patient presents with diarrhea and nausea with associated decreased oral intake and headache. Patient given medication and on reevaluation headache has resolved and patient feels significantly better. Patient is updated on results and need for follow-up. Undiagnosed new problem with uncertain prognosis? @ -No Drug Therapy requiring intensive monitoring for toxicity (Heparin, Nitro, Insulin, Cardizem)? @ -No Were any procedures done? @ -No Diagnosis/symptom? @ -Nausea, headache Acute, or Chronic, or Acute on Chronic? @ -Acute, acute Uncomplicated (without systemic symptoms) or Complicated (systemic symptoms)? @ -Default Side effects of treatment? @ -No Exacerbation, Progression, or Severe Exacerbation? @ -No Poses a threat to life or bodily function? How? (Chest pain, USA, [place], pneumonia, PE, COPD, DKA, ARF, appy, cholecystitis, CVA, Diverticulitis, Homicidal, Suicidal, threat to staff... and all critical care pts) @ -No - Lab Data Result diagrams: 02/25/24 12:04 02/25/24 12:04 Lab Results 02/25/24 02/25/24 Range/Units 12:04 12:04 WBC 7.5 (3.8-10.6) k/uL RBC 4.77 (3.80-5.40) m/uL Hgb 13.7 (11.4-16.0) gm/dL Hct 42.3 (34.0-46.0) % MCV 88.7 (80.0-100.0) fL MCH 28.7 (25.0-35.0) pg MCHC 32.4 (31.0-37.0) g/dL RDW 12.4 (11.5-15.5) % Plt Count 344 (150-450) k/uL MPV 6.9 Neutrophils % 49 % Lymphocytes % 40 % Monocytes % 7 % Eosinophils % 3 % Basophils % 1 % Neutrophils # 3.6 (1.3-7.7) k/uL Lymphocytes # 3.0 (1.0-4.8) k/uL Monocytes # 0.5 (0-1.0) k/uL Eosinophils # 0.2 (0-0.7) k/uL Basophils # 0.0 (0-0.2) k/uL Sodium 137 (137-145) mmol/L Potassium 4.4 (3.5-5.1) mmol/L Chloride 105 (98-107) mmol/L Carbon Dioxide 26 (22-30) mmol/L Anion Gap 6 mmol/L BUN 21 H (7-17) mg/dL Creatinine 0.85 (0.52-1.04) mg/dL Est GFR (CKD-EPI)AfAm >90 (>60 ml/min/1.73 sqM) Est GFR (CKD-EPI)NonAf 80 (>60 ml/min/1.73 sqM) Glucose 88 (74-99) mg/dL Calcium 9.2 (8.4-10.2) mg/dL Total Bilirubin 0.9 (0.2-1.3) mg/dL AST 19 (14-36) U/L ALT 20 (4-34) U/L Alkaline Phosphatase 73 (38-126) U/L Total Protein 6.8 (6.3-8.2) g/dL Albumin 3.9 (3.5-5.0) g/dL Amylase 53 (30-110) U/L Lipase 128 (23-300) U/L Disposition Clinical Impression: Nausea, Headache Disposition: HOME SELF-CARE Condition: Stable Instructions (If sedation given, give patient instructions): Acute Headache (ED) Additional Instructions: Prescription for nausea medicine sent to pharmacy. Please follow-up with your primary care physician in the next couple of days for recheck. Return for fevers, increased headache, not tolerating oral intake, worsening symptoms or other concerns. Prescriptions: Ondansetron Odt [Zofran Odt] 4 mg PO Q8HR PRN #10 tab PRN Reason: Nausea Is patient prescribed a controlled substance at d/c from ED?: No Referrals: Sharmila Sylvester MD [Primary Care Provider] - 1-2 days Time of Disposition: 13:02
[2024-02-25] MEDS: ACETAMINOPHEN IV (For NPO) 1,000 MG in EMPTY BAG 1 BAG IVPB STA (12:06)
[2024-02-25] MEDS: FAMOTIDINE 20 MG/2 ML VIAL IV STA (12:07)
[2024-02-25 12:13] LABS: Basophils % (A) 1 %; Eosinophils # (A) 0.2 k/uL (0-0.7); Eosinophils % (A) 3 %; HCT 42.3 % (34.0-46.0); HGB 13.7 gm/dL (11.4-16.0); Lymphocytes % (A) 40 %; MCH 28.7 pg (25.0-35.0); MCHC 32.4 g/dL (31.0-37.0); MCV 88.7 fL (80.0-100.0); Mean Platelet Volume 6.9; Monocytes # (A) 0.5 k/uL (0-1.0); Monocytes % (A) 7 %; Neutrophils # (A) 3.6 k/uL (1.3-7.7); Neutrophils % (A) 49 %; Platelet Count 344 k/uL (150-450); RBC 4.77 m/uL (3.80-5.40); RDW 12.4 % (11.5-15.5); WBC 7.5 k/uL (3.8-10.6)
[2024-02-25 12:34] LABS: ALT 20 U/L (4-34); AST 19 U/L (14-36); African American GFR (CKD) >90 (>60 ml/min/1.73 sqM); Albumin 3.9 g/dL (3.5-5.0); Alkaline Phosphatase 73 U/L (38-126); Amylase 53 U/L (30-110); Anion Gap 6 mmol/L; Blood Urea Nitrogen 21 mg/dL (7-17); Calcium 9.2 mg/dL (8.4-10.2); Carbon Dioxide 26 mmol/L (22-30); Chloride 105 mmol/L (98-107); Glucose 88 mg/dL (74-99); Lipase 128 U/L (23-300); Non-African American GFR(CKD) 80 (>60 ml/min/1.73 sqM); Potassium 4.4 mmol/L (3.5-5.1); Sodium 137 mmol/L (137-145); Total Bilirubin 0.9 mg/dL (0.2-1.3); Total Protein 6.8 g/dL (6.3-8.2)
[2024-02-25 13:13] VITALS: BP 111/73; PULSE 62; TEMP 98.1
== END 2024-02-25 13:11 | disposition home or self-care (01) ==
LOC: EC 10:58
DX: R51.9 Headache, unspecified (principal); R11.0 Nausea; Z88.5 Allergy status to narcotic agent
CPT/HCPCS: 36415; 80053; 82150; 83690; 85025; 99284; 96374; 96375 ×2; 96361; J2765; J3490; J0131

== ENCOUNTER → 2024-08-18 | Outpatient (CLI) | payer BC ==
--- NOTE | 2024-08-18 11:39 | MM ---
Reason for Exam: Screening (asymptomatic). Last screening mammogram was performed 12 month(s) ago. Patient History: Menarche at age 18. First Full-Term at age 20. Left ovary removed at age 50. Right ovary removed at age 50. Postmenopausal. Breast cancer, left, age 41. Hormonal Contraceptives for 2 years, 6 months. Tamoxifen, starting at age 41 for 7 years. 07/16/2011, Mastectomy on the Left side. 01/07/2014, Benign Core Biopsy on the right side. 06/19/2011, Malignant Core Biopsy on the left side. 2011, Implant on the left side. 2011, Implant on the left side. Maternal aunt had breast cancer, age 50. Prior Study Comparison: 08/15/2021 Right MG 3D diag mammo w/cad RT, [facility]. 08/16/2022 Right Screening 3D/Tomosynthesis, [facility]. 08/18/2023 Right MG 3D scr nikki unilateral w/cad., [facility]. Tissue Density: Right: There are scattered areas of fibroglandular density. Findings: Analyzed By CAD. Biopsy clip in the right axilla in lymph node is redemonstrated. There is no suspicious group of microcalcifications or new suspicious mass in the right breast. Overall Assessment: Benign, BI-RAD 2 Management: Screening Mammogram of the right breast in 1 year. . Patient should continue monthly self-breast exams. A clinical breast exam by your physician is recommended on an annual basis. This exam should not preclude additional follow-up of suspicious palpable abnormalities. Note on Susan scores and lifetime risk: 1. A Susan score greater than 3% is considered moderate risk. If this is the case, consider specialist referral to assess eligibility for a risk reducing agent. 2. If overall lifetime risk for the development of breast cancer is 20% or higher, the patient may qualify for future screening with alternating mammogram and breast MRI. [facility], , 08/18/2024 11:36 AM. Electronically signed and approved by: Lucas Telles M.D.
== END | disposition home or self-care (01) ==
LOC: RADMAMWWP 10:49
PROVIDERS: ATTEND Internal Medicine Hematology & Oncology
DX: Z12.31 Encounter for screening mammogram for malignant neoplasm of breast (principal); C50.412 Malignant neoplasm of upper-outer quadrant of left female breast; R92.321 Mammographic fibroglandular density, right breast; Z80.3 Family history of malignant neoplasm of breast; Z78.0 Asymptomatic menopausal state; Z71.3 Dietary counseling and surveillance; Z17.0 Estrogen receptor positive status [ER+]
CPT/HCPCS: 77063; 77067